=== PATIENT | female | born 1995 | race Caucasian/White ===

== ENCOUNTER 2019-12-15 08:21 | Emergency (ER) | payer OTHER, SELFPAY ==
--- NOTE | ~2019-12-15 | XR_ITS ---
EXAMINATION: XR lumbar spine 2-3V DATE: 12/15/2019 09:05 INDICATION: Generalized low back pain post fall down stairs. TECHNIQUE: Anteroposterior and lateral views of the lumbar spine, and cone-down lateral view of the l umbosacral junction were obtained. COMPARISON: None. FINDINGS: 12 degree lumbar extra scoliosis. Sagittal alignment is normal. Vertebral body heights are normal. Mi ld left-sided disc height loss at L2-L3 and L3-L4. Joint spaces appear normal. Sacral arches are inta ct. No evident fracture. IUD in expected position in the central pelvis. Subcutaneous stranding at th e buttocks on the lateral projection which could represent a contusion. Visualized posterior sulci of the lungs are clear with no pleural effusion. IMPRESSION: 1. Mild lumbar dextroscoliosis. No acute osseous abnormality. 2. IUD. Reviewed, dictated and finalized at location B.
[2019-12-15 08:27] VITALS: BP 130/83; PULSE 89; RESP 20; TEMP 36.9; O2SAT 100
--- NOTE | 2019-12-15 08:53 | ED.GENADULT ---
HPI - General Adult General Chief complaint: Back Pain/Injury Stated complaint: lower back pain/bruised - arms bruised due to fall Time Seen by Provider: 12/15/19 08:53 Source: patient Limitations: no limitations History of Present Illness HPI narrative: 24-year-old female patient [facility] complaints of low back pain. Patient states that she was going down some wooden stairs and slipped and fell landing on her buttocks/back last night. Patient denies any numbness to the lower legs but states a little bit of tingling at times in her thighs. Patient denies any loss of bowel or bladder. Patient states she has been taking ibuprofen for the pain. Patient states she does have pain when bending over and states that she could not even brain picker her daughter this morning. Patient denies hitting her head or loss of consciousness at the time of the fall. Patient denies any or breast-feeding at this time. Related Data Home Medications Medication Instructions Recorded Confirmed levonorgestrel [Mirena] 1 device INTRAUTERINE ONCE 12/15/19 12/15/19 Allergies Allergy/AdvReac Type Severity Reaction Status Date / Time clindamycin Allergy Intermediate Hives Verified 12/15/19 08:39 Review of Systems Review of Systems: Narrative: CONSTITUTIONAL: Denies fever, chills, or sweats. EYES: Denies visual changes, redness, or discharge. ENT: Denies rhinorrhea, congestion, sore throat, or otalgia. CARDIOVASCULAR: Denies chest pain, palpitations, or edema. RESPIRATORY: Denies cough or dyspnea. GASTROINTESTINAL: Denies abdominal pain, nausea, vomiting, or diarrhea. GENITOURINARY: Denies dysuria or hematuria. SKIN: Denies rash or itching. MUSCULOSKELETAL: Positive low back pain, denies joint pain, or myalgia. NEUROLOGIC: Denies headache, numbness, or weakness. PSYCHIATRIC: Denies anxiety or depression. [facility], LAT[facility] Past Medical History Medical History (Updated 12/15/19 @ 09:22 by RAMESH Urbina) Asthma Bronchitis Preeclampsia Tonsillitis Family History Family History Other Asthma Diabetes mellitus Family history of attention deficit hyperactivity disorder (ADHD) Social History Social History Smoking status: Never smoker Alcohol intake: never Comments At the time of my signature I agree with nursing past medical history, surgical, social, and family history. There is no relevant family history pertinent to the presenting complaint. Exam Narrative: Exam Narrative: GENERAL: Well-appearing, well-nourished, and in no acute distress. HEAD: Normocephalic, atraumatic. EYES: PERRLA and EOMI. ENT: Nares clear, no rhinorrhea or epistaxis. Mucous membranes moist. NECK: Supple. No lymphadenopathy CHEST: Clear to auscultation. No respiratory distress. HEART: Regular rate and rhythm. No murmur heard. Normal peripheral pulses. ABDOMEN: Soft, nontender, nondistended, normal active bowel sounds. EXTREMITIES: Normal range of motion. No edema. BACK: Patient is able to ambulated without assistance. Pt is seated on the chair in no obvouis distress. Patient has purple bruising noted to the lower back right above the buttocks/coccyx area. muscle tenderness to Palpation of the lower lumbar and coccyx area. No obvious spasm or mass. No step-offs or deformity noted to the cervical, thoracic to firm Palpation at the midline. Patient does have some lumbar spinal tenderness on palpation around the L4 and L 5. no CVA tenderness to percussion. No saddle anesthesia. ROM: able to stand erect. Decreased flexion, extension, Lateral bending and rotation with limitation and complaint of pain. SKIN: Warm, dry, no rash. NEURO: No focal deficits. Alert and oriented x3. Course Reevaluation(s) Reevaluation #1: Reevaluated patient after her x-ray resulted. Discussed with her that there is no acute fracture noted to the x-ray. Yvonne
== END 2019-12-15 09:29 | disposition home or self-care (01) ==
PROVIDERS: Emergency Provider Nurse Practitioner Family; PCP Nurse Practitioner Adult Health
DX: S30.0XXA Contusion of lower back and pelvis, initial encounter (principal); W10.9XXA Fall (on) (from) unspecified stairs and steps, initial encounter; J45.909 Unspecified asthma, uncomplicated; E28.2 Polycystic ovarian syndrome
CPT/HCPCS: 72100; 99213; G0463

== ENCOUNTER 2020-09-02 13:26 | Emergency (ER) | payer OTHER, SELFPAY ==
[2020-09-02 13:37] LABS: Glucose Point of Care 121 mg/dl (65-105)
[2020-09-02 13:38] VITALS: BP 143/91; PULSE 116; RESP 16; TEMP 37.1; O2SAT 99
--- NOTE | 2020-09-02 13:40 | ECG_ITS ---
Measurements Intervals [place] Rate: 95 P: 54 ME: 147 QRS: 14 QRSD: 85 T: 26 QT: 344 QTc: 433 Interpretive Statements SINUS RHYTHM POSSIBLE LEFT ATRIAL ENLARGEMENT BORDERLINE ECG Electronically Signed On 09-02-2020 16:20:21 CDT by Cristian Parks D.O.
[2020-09-02 14:03] VITALS: BP 146/82; PULSE 99
[2020-09-02 14:04] VITALS: BP 141/94; BP 149/111; PULSE 109; PULSE 119
--- NOTE | 2020-09-02 14:11 | ED.GENADULT ---
HPI - General Adult General Chief complaint: Dizziness Stated complaint: Low blood sugar Time Seen by Provider: 09/02/20 13:45 Source: patient and RN notes reviewed Mode of arrival: ambulatory Limitations: no limitations History of Present Illness HPI narrative: 25-year-old female presents with complaints of lightheadedness, feeling flushed, and dizziness that has been going on for the past 2 days. Bailee reports consistent symptoms over the past 24 hours, told to seek care at [facility]. No treatment. Exacerbating factors consist of changing position too fast turning head from side to side too fast. Some relieving factors is sitting still. Denies ear pain, ear itching, ear trauma, trauma to head, syncopal episodes, altered vision, altered speech, confusion, or seizure activity. Denies headache, numbness or tingling in extremities. Denies chest pain or dyspnea. Denies URI symptoms, fever, or chills. Tolerating po intake well. LMP 08/17/2020. Remains active. The patient reports she was diagnosed with COVID-19 in October,. The patient reports she is not waiting for the results of a COVID-19 lab test. The patient reports she do not have weakness or fatigue. The patient reports she do not have a new or worsening cough. The patient reports she do not have any rhinorrhea, congestion, sore throat, loss of taste or smell, nausea, vomiting, abdominal pain, and diarrhea. Denies recent traveling. Denies concerns for COVID-19 or exposures. At this time, patient is not suspected of having COVID-19. Some parts of this dictation were generated by voice recognition software and may contain typographical and/or grammatical inaccuracies. Related Data Home Medications Medication Instructions Recorded Confirmed levonorgestrel [Mirena] 1 device INTRAUTERINE ONCE 12/15/19 12/15/19 liraglutide [Victoza 3-Napoleon] mg SUBCUT 09/02/20 Allergies Allergy/AdvReac Type Severity Reaction Status Date / Time clindamycin Allergy Intermediate Hives Verified 12/15/19 08:39 Review of Systems Review of Systems: Narrative: CONSTITUTIONAL: Denies fever, chills, sweats. EYES: Denies visual changes, redness, discharge. ENT: Denies rhinorrhea, congestion, sore throat, otalgia. CARDIOVASCULAR: Denies chest pain, palpitations, edema. RESPIRATORY: Denies dyspnea, wheezing, cough. GASTROINTESTINAL: Denies abdominal pain, nausea, vomiting, diarrhea. GENITOURINARY: Denies dysuria, hematuria, abnormal discharge. SKIN: Denies lesions, itching, drainage. MUSCULOSKELETAL: Denies acute back pain, joint pain, or myalgia. NEUROLOGIC: Denies numbness or focal weakness. Complains of lightheadedness, feeling flushed, dizziness and elevated blood pressure. PSYCHIATRIC: Denies anxiety or depression. All systems reviewed & are unremarkable except as noted in HPI and below. [facility] Past Medical History Medical History (Updated 09/03/20 @ 00:00 by Hannah Tay) Asthma Bronchitis Chronic otitis media Hypertension Multiple thyroid nodules Preeclampsia Rhinitis Tonsillitis Surgical History Surgical History (Updated 09/02/20 @ 14:15 by RAMESH Hannon) History of tonsillectomy History of tympanostomy Family History Family History Other Asthma Diabetes mellitus Family history of attention deficit hyperactivity disorder (ADHD) Social History Social History (Updated 09/02/20 @ 14:14 by RAMESH Hannon) Smoking status: Never smoker Tobacco type: cigarettes Second hand tobacco smoke exposure: Yes Alcohol intake: never Substance use: never Living arrangements: with family Occupation/Education: occupation Gender identity (if verbalized by the patient): Female Sexual Orientation (if Verbalized by the Patient): Straight or Heterosexual Comments At time of signature, agree with nurse past medical, surgical, social, and family history. There is relevant patient's
[2020-09-02] MEDS: MECLIZINE HCL 25 MG TABLET 50 MG PO (14:29)
== END 2020-09-02 14:49 | disposition home or self-care (01) ==
PROVIDERS: Emergency Provider Nurse Practitioner Family
DX: I10 Essential (primary) hypertension (principal); H81.10 Benign paroxysmal vertigo, unspecified ear; J45.909 Unspecified asthma, uncomplicated
CPT/HCPCS: 81003; 81025; 82948; 93005; 99213; A9270; G0463

== ENCOUNTER 2021-02-15 17:53 | Emergency (ER) | payer OTHER, SELFPAY ==
--- NOTE | ~2021-02-15 | XR_ITS ---
XR foot LT min 3V DATE: 02/15/2021 18:08 INDICATION: Long fell on top of foot. Dorsal pain and swelling TECHNIQUE: 4 views COMPARISON: None FINDINGS: Mild osteoarthritis at first metatarsophalangeal joint. No fracture or dislocation, periosteal reaction or bone destruction. IMPRESSION: Mild osteoarthritis at first metatarsophalangeal joint No fracture or dislocation Reviewed, dictated and finalized at location A.
[2021-02-15 18:00] VITALS: BP 149/98; PULSE 87; RESP 16; TEMP 37.1; O2SAT 98
--- NOTE | 2021-02-15 18:14 | ED.LOWEXIN ---
HPI - Extremity Injury (Lower) General Chief Complaint: Extremity Injury, Lower Stated Complaint: Left Foot Injury Time Seen by Provider: 02/15/21 18:14 Source: patient and family History of Present Illness HPI Narrative: patient presents with left foot injury. patient states that a log fell onto her foot. reports pain with ambulation . Injury: Left: foot (left foot pain) Related Data Home Medications Medication Instructions Recorded Confirmed levonorgestrel [Mirena] 1 device INTRAUTERINE ONCE 12/15/19 12/15/19 liraglutide [Victoza 3-Napoleon] mg SUBCUT 09/02/20 Allergies Allergy/AdvReac Type Severity Reaction Status Date / Time clindamycin Allergy Intermediate Hives Verified 12/15/19 08:39 Review of Systems Review of Systems: CONSTITUTIONAL: Denies fever, chills, or sweats. EYES: Denies visual changes, redness, or discharge. ENT: Denies rhinorrhea, congestion, sore throat, or otalgia. CARDIOVASCULAR: Denies chest pain, palpitations, or edema. RESPIRATORY: Denies cough or dyspnea. GASTROINTESTINAL: Denies abdominal pain, nausea, vomiting, or diarrhea. GENITOURINARY: Denies dysuria or hematuria. SKIN: Denies rash or itching. MUSCULOSKELETAL: Denies back pain, joint pain, or myalgia. NEUROLOGIC: Denies headache, numbness, or weakness. PSYCHIATRIC: Denies anxiety or depression. [facility] Past Medical History Medical History (Updated 02/15/21 @ 18:16 by RAMESH Steven) Asthma Bronchitis Chronic otitis media Hypertension Multiple thyroid nodules Preeclampsia Rhinitis Tonsillitis Surgical History Surgical History (Updated 09/02/20 @ 14:15 by RAMESH Hannon) History of tonsillectomy History of tympanostomy Family History Family History Other Asthma Diabetes mellitus Family history of attention deficit hyperactivity disorder (ADHD) Social History Social History (Updated 09/02/20 @ 14:14 by RAMESH Hannon) Smoking status: Never smoker Tobacco type: cigarettes Second hand tobacco smoke exposure: Yes Alcohol intake: never Substance use: never Gender identity (if verbalized by the patient): Female Sexual Orientation (if Verbalized by the Patient): Straight or Heterosexual Comments At time of signature, agree with nursing past medical, surgical, social and family history. There is no relevant family history pertinent to the presenting complaint Exam Narrative: GENERAL: Well-appearing, well-nourished, and in no acute distress. HEAD: Normocephalic, atraumatic. EYES: PERRLA and EOMI. ENT: Nares clear, no rhinorrhea or epistaxis. Mucous membranes moist. NECK: Supple. CHEST: Clear to auscultation. No respiratory distress. HEART: Regular rate and rhythm. No murmur heard. Normal peripheral pulses. ABDOMEN: Soft, nontender, nondistended, normal active bowel sounds. EXTREMITIES: Normal range of motion. No edema. ANKLE EXAM SKIN INTACT. NORMAL DP PULSE, NORMAL CAP REFILL. NORMAL SENSATION. SKIN: Warm, dry, no rash. NEURO: No focal deficits. Alert and oriented x3. Glenn Coma Scale Eye Opening: Spontaneous 4 [place] Coma Scale Motor: Obeys Commands 6 [place] Coma Scale Verbal: Oriented 5 Glenn Coma Scale Total 15 Course Vital Signs Vital signs: Vital Signs Temperature 37.1 C 02/15/21 18:00 Pulse Rate 87 02/15/21 18:00 Respiratory Rate 16 02/15/21 18:00 Blood Pressure 149/98 H 02/15/21 18:00 Pulse Oximetry 98 02/15/21 18:00 Temperature 37.1 C 02/15/21 18:00 Pulse Rate 87 02/15/21 18:00 Respiratory Rate 16 02/15/21 18:00 Blood Pressure 149/98 H 02/15/21 18:00 Pulse Oximetry 98 02/15/21 18:00 Addressed elevated BP today. Today's blood pressure higher than recommended range. Discussed importance of follow -up with PCP and possible nursing home effects/cardiovascular events related to HTN. Currently patient denies headache, dizziness, vision changes, CP or shortness of b
== END 2021-02-15 18:33 | disposition home or self-care (01) ==
PROVIDERS: Emergency Provider Nurse Practitioner Family; PCP Nurse Practitioner Adult Health
DX: S93.402A Sprain of unspecified ligament of left ankle, initial encounter (principal); S96.912A Strain of unspecified muscle and tendon at ankle and foot level, left foot, initial encounter; W20.8XXA Other cause of strike by thrown, projected or falling object, initial encounter; J45.909 Unspecified asthma, uncomplicated; I10 Essential (primary) hypertension
CPT/HCPCS: 73630; 99213; G0463

== ENCOUNTER 2021-08-13 21:15 | Emergency (ER) | payer OTHER, SELFPAY ==
[2021-08-13 21:40] VITALS: BP 149/96; PULSE 108; RESP 16; TEMP 36.9; O2SAT 100
--- NOTE | 2021-08-13 22:50 | PC.NURSE ---
pt no answer for room assignment x1
== END 2021-08-13 22:50 | disposition left against medical advice (07) ==
LOC: ANHED 08-14 00:50
PROVIDERS: PCP Nurse Practitioner Adult Health
DX: O26.891 Other specified pregnancy related conditions, first trimester (principal); R10.9 Unspecified abdominal pain
CPT/HCPCS: 99199

== ENCOUNTER 2021-08-30 18:29 | Emergency (ER) | payer OTHER, SELFPAY ==
[2021-08-30 18:34] VITALS: BP 145/85; PULSE 119; RESP 20; TEMP 37.4; O2SAT 100
--- NOTE | 2021-08-30 18:55 | ED.GENADULT ---
HPI - General Adult General Chief complaint: Abdominal Pain Stated complaint: Blood Pressure Problem Time Seen by Provider: 08/30/21 18:50 Source: patient, RN notes reviewed and old records reviewed Mode of arrival: ambulatory Limitations: no limitations History of Present Illness HPI narrative: 26-year-old female presents to express care with complaints of intermittent cramping for 2 days and states today she has felt hot/flushed wonders if her blood pressure is up. Patient reports that she is 9 weeks and has just not been feeling well for the past 2 days.She has history of hypertension with past and blood pressure is elevated and is presently on Procardia XL, no pedal edema noted. Patient denies any fevers chills or sweats,denies any back pain, chest pain or any acute shortness of breath.Patient states that she did not try to get ahold of her OB physician. Onset (ago): day(s) (2) Related Data Home Medications Medication Instructions Recorded Confirmed nifedipine [Procardia XL] 30 mg PO DAILY 08/30/21 08/30/21 Allergies Allergy/AdvReac Type Severity Reaction Status Date / Time clindamycin Allergy Intermediate Hives Verified 08/30/21 18:53 Review of Systems Review of Systems: CONSTITUTIONAL: Denies fever, chills, or sweats reports that she has felt flushed. EYES: Denies visual changes, redness, or discharge. ENT: Denies rhinorrhea, congestion, sore throat, or otalgia. CARDIOVASCULAR: Denies chest pain, palpitations, or edema. RESPIRATORY: Denies cough or dyspnea. GASTROINTESTINAL: Reports some intermittent abdominal cramping,no nausea, vomiting, or diarrhea.no vaginal discharge or any bleeding. GENITOURINARY: Denies dysuria or hematuria. SKIN: Denies rash or itching. MUSCULOSKELETAL: Denies back pain, joint pain, or myalgia. NEUROLOGIC: Denies headache, numbness, or weakness. PSYCHIATRIC: Denies anxiety or depression. All systems reviewed & are unremarkable except as noted in HPI and below PMF[facility] Past Medical History Medical History Asthma Bronchitis Chronic otitis media Hypertension Multiple thyroid nodules Preeclampsia Rhinitis Tonsillitis Surgical History Surgical History History of tonsillectomy History of tympanostomy Family History Family History Other Asthma Diabetes mellitus Family history of attention deficit hyperactivity disorder (ADHD) Social History Social History Smoking status: Never smoker Tobacco type: cigarettes Second hand tobacco smoke exposure: Yes Alcohol intake: never Substance use: never Gender identity (if verbalized by the patient): Female Sexual Orientation (if Verbalized by the Patient): Straight or Heterosexual Comments At time of signature, agree with nursing past medical, surgical, social and family history. There is no relevant family history pertinent to the presenting complaint Exam Narrative: GENERAL: Well-appearing, well-nourished, and in no acute distress. HEAD: Normocephalic, atraumatic. EYES: PERRLA and EOMI.no nystagmus ENT: Nares clear, no rhinorrhea or epistaxis. Mucous membranes moist.TM's normal with good light reflex, throat pink with no lesions or exudates, no tonsils present. NECK: Supple.no lymphadenopathy CHEST: Clear to auscultation. No respiratory distress.no cough SAO2 100% on room air HEART: Regular rate and rhythm. No murmur heard. Normal peripheral pulses.no pedal edema present ABDOMEN: Soft, nontender on palpation, nondistended, normal active bowel sounds.No CVA tenderness on examination, intermittent cramping type of sensation right abdomen, no vaginal discharge or bleeding EXTREMITIES: Normal range of motion. No edema. SKIN: Warm, dry, no rash.face slightly flushed denies any headache NEURO: No foc
[2021-08-30 19:02] VITALS: BP 140/80
== END 2021-08-30 19:24 | disposition home or self-care (01) ==
PROVIDERS: Emergency Provider Registered Nurse
DX: O23.41 Unspecified infection of urinary tract in pregnancy, first trimester (principal); N39.0 Urinary tract infection, site not specified; O16.1 Unspecified maternal hypertension, first trimester; Z3A.09 9 weeks gestation of pregnancy; O99.511 Diseases of the respiratory system complicating pregnancy, first trimester; J45.909 Unspecified asthma, uncomplicated
CPT/HCPCS: 81003; 87086; 87088; 99213; G0463

== ENCOUNTER 2021-10-16 18:12 | Emergency (ER) | payer OTHER, SELFPAY ==
--- NOTE | ~2021-10-16 | US_ITS ---
US OB <= 14 weeks fetus DATE: 10/16/2021 21:34 INDICATION: Lower abdominal pain TECHNIQUE: Real-time imaging and Doppler analysis COMPARISON: None FINDINGS: Live cornejo intrauterine gestation, fetus activity variable position, with heart r ate of 149 bpm. Anterior placenta. Subjectively normal amount of amniotic fluid. Biparietal diameter 3.36 cm; 16 weeks 3 days Head circumference 12.42 cm; 16 weeks 2 days Abdominal circumference 9.30 cm; 15 weeks 3 days Femur length 1.95 cm; 15 weeks 6 days Estimated weight is 151 +/- 20 3 g. IMPRESSION: No abnormality identified Reviewed, dictated and finalized at Location A. Reviewed, dictated and finalized at location A. IMPRESSION: No abnormality identified
[2021-10-16 18:15] VITALS: BP 150/95; PULSE 116; RESP 18; TEMP 36.7; O2SAT 99
--- NOTE | 2021-10-16 18:49 | ED.NAVMDI ---
HPI - Nausea/Vomiting/Diarrhea General Chief complaint: Nausea/Vomiting/Diarrhea Stated complaint: vomiting Time Seen by Provider: 10/16/21 18:42 History of Present Illness HPI Narrative: 26-year-old G2, P1 female who is currently 16 weeks here for evaluation of nausea, vomiting, and diarrhea today. Patient notes about 4 episodes of nonbloody emesis today, and has had about 8 episodes of nonbloody diarrhea. States that she has been unable to keep any food or fluids down. Also reports subjective fevers, body aches and some lower abdominal cramping. No recent antibiotic use, denies sick contacts. Denies vaginal bleeding, syncope, leg swelling, headaches, visual changes. No rhinorrhea, cough, SOB, sudden gush of fluids. Is a patient of Dr. Correia; has not yet had US with Deo. Related Data Home Medications Medication Instructions Recorded Confirmed nifedipine 30 mg tablet,extended 30 mg PO DAILY 08/30/21 08/30/21 release 24 hr (Procardia XL) Allergies Allergy/AdvReac Type Severity Reaction Status Date / Time clindamycin Allergy Intermediate Hives Verified 10/16/21 18:34 Review of Systems Review of Systems: Gen: Reports subjective fevers. Eyes: Denies eye pain or visual change ENT: Denies congestion Respiratory: Denies shortness of breath or cough CV: Denies chest pain or palpitations GI: Reports nausea, vomiting, diarrhea, lower abdominal pain. denies burning, urgency, frequency or hematuria Musculoskeletal: Denies back pain or muscle pain Neuro: Denies numbness, tingling, weakness or focal weakness Skin: Denies rash Except as documented, all other systems reviewed and negative [facility] Past Medical History Medical History Asthma Bronchitis Chronic otitis media Hypertension Multiple thyroid nodules Preeclampsia Rhinitis Tonsillitis Surgical History Surgical History History of tonsillectomy History of tympanostomy Family History Family History Other Asthma Diabetes mellitus Family history of attention deficit hyperactivity disorder (ADHD) Social History Social History Smoking status: Never smoker Tobacco type: cigarettes Second hand tobacco smoke exposure: Yes Alcohol intake: never Substance use: never Gender identity (if verbalized by the patient): Female Sexual Orientation (if Verbalized by the Patient): Straight or Heterosexual Exam Narrative: APPEARANCE: Well appearing, no pain in distress, well-nourished. Head: Normocephalic and atraumatic. EYES: PERRLA/EOMI, conjunctivae clear NOSE: No nasal drainage EARS: External ear normal in appearance THROAT: Oropharynx is clear. Mucous membranes are moist. NECK: Supple. No adenopathy, no masses. RESPIRATORY: Airway patent, respirations nonlabored. Clear to auscultation bilaterally, no rales, rhonchi, wheezing. CARDIOVASCULAR: Regular rate and rhythm without murmurs, rubs, or gallops. ABDOMINAL: heart tones detected at 165 bpm. Normoactive bowel sounds. Soft, nontender, nondistended. No rebound tenderness or guarding. MUSCULOSKELETAL: Extremities are warm and well-perfused. Moves all extremities well. No edema. NEURO: Normal speech. No focal neurologic deficits. SKIN: Skin is warm and dry. No rashes. PSYCHIATRIC: Normal affect/mood. Course Vital Signs Vital signs: Vital Signs Temperature 98.0 F 10/16/21 18:15 Pulse Rate 116 H 10/16/21 18:15 Respiratory Rate 18 10/16/21 18:15 Blood Pressure 150/95 H 10/16/21 18:15 Pulse Oximetry 99 10/16/21 18:15 Oxygen Delivery Room Air 10/16/21 18:15 Temperature 98.0 F 10/16/21 18:15 Pulse Rate 79 10/16/21 22:27 Respiratory Rate 16 10/16/21 22:27 Blood Pressure 127/73 10/16/21 22:27 Pulse Oximetry 97
[2021-10-16 18:58] LABS: Basophils Percent Auto 0.3 % (0.2-1.2); Eosinophils Percent Auto 0.1 % (0-4.4); Hematocrit 40.3 % (37.0-47.0); Hemoglobin 13.6 g/dL (12.0-15.0); Immature Granulocyte Absolute 0.08 K/mm3 (0.00-0.031); Immature Granulocyte Percent A 0.7 % (0-0.5); Lymphocytes Absolute Auto 0.77 K/mm3 (0.9-3.2); Lymphocytes Percent Auto 6.3 % (18.3-44.2); Mean Corpuscular HGB Conc 33.7 g/dl (32-36); Mean Corpuscular Hemoglobin 29.4 pg (26-34); Mean Platelet Volume 10.5 fl (7.4-10.4); Monocytes Absolute Auto 0.7 K/mm3 (0.1-0.6); Monocytes Percent Auto 5.4 % (2.6-8.5); Neutrophils Absolute Auto 10.6 K/mm3 (1.3-6.7); Neutrophils Percent Auto 87.2 % (45.5-73.1); Platelet Count Result 223 k/mm3 (150-375); Red Blood Count 4.63 M/mm3 (4.2-5.4); Red Cell Distribution Width 13.2 % (11.5-14.5); White Blood Count 12.2 K/mm3 (4.5-10.0)
[2021-10-16] MEDS: LACTATED RINGERS 1,000 ML 999 ML IV CONT ×2 (19:05→20:52)
[2021-10-16] MEDS: ONDANSETRON INJ 4 MG/2 ML VIAL IV PUSH (19:05)
[2021-10-16 19:09] LABS: Alanine Aminotransferase 53 U/L (6-35); Albumin Level 4.6 g/dL (3.5-5.1); Alkaline Phosphatase 73 U/L (38-126); Anion Gap 10 mmol/L (8-16); Aspartate Amino Transferase 39 U/L (14-36); Bilirubin,Total 0.6 mg/dL (0.2-1.3); Blood Urea Nitrogen 8 mg/dL (7-17); Calcium 8.7 mg/dL (8.4-10.2); Carbon Dioxide 22 mmol/L (22-30); Chloride 103 mmol/L (98-107); Estimated CRCL calculation 173 ml/min; Estimated Glomerular Filt Rate > 60; Glucose 97 mg/dL (65-110); Potassium 3.9 mmol/L (3.4-5.0); Sodium 135 mmol/L (137-145)
[2021-10-16 19:14] LABS: Appearance Urine Clear (Clear); Bilirubin Urine 1+ (Negative); Blood Urine Negative (Negative); Color Urine Yellow (Yellow); Glucose Urine UA Negative (Negative); Ketones Urine 2+ mg/dL (Negative); Leukocyte Esterase Ur 1+ LEU/UL (Negative); Nitrate Urine Negative (Negative); Protein Urine Trace mg/dL (Negative); Specific Grav Ur >= 1.030 (1.001-1.035); Urobilinogen Urine 0.2 mg/dL (<2.0); pH Urine 5.5 (5.0-9.0)
[2021-10-16 19:35] LABS: Bacteria Urine Trace /hpf; Mucus Urine Moderate /lpf; Squamous Epithelial Cell Urine Many /hpf (Few); WBC Urine 31-50 /hpf
[2021-10-16 19:38] LABS: Add Urine Microscopic? YES
[2021-10-16] MEDS: ACETAMINOPHEN 325 MG TABLET 650 MG PO (19:49)
[2021-10-16 20:17] VITALS: BP 120/69; PULSE 87; RESP 16; O2SAT 97
[2021-10-16 21:14] LABS: SARS-CoV-2 RNA PCR Negative
[2021-10-16 22:27] VITALS: BP 127/73; PULSE 79; RESP 16; O2SAT 97
== END 2021-10-16 22:41 | disposition home or self-care (01) ==
PROVIDERS: Physician Assistant; Emergency Provider Emergency Medicine
DX: O10.912 Unspecified pre-existing hypertension complicating pregnancy, second trimester (principal); K52.9 Noninfective gastroenteritis and colitis, unspecified; O23.42 Unspecified infection of urinary tract in pregnancy, second trimester; N39.0 Urinary tract infection, site not specified; O99.612 Diseases of the digestive system complicating pregnancy, second trimester; K92.9 Disease of digestive system, unspecified; Z3A.16 16 weeks gestation of pregnancy; Z20.822 Contact with and (suspected) exposure to COVID-19
CPT/HCPCS: 36415; 76801; 80053; 81001; 85025; 87086; 96361; 96374; 99284; A9270; C9803; J2405; J7120; U0003; U0005

== ENCOUNTER 2021-11-04 16:31 | Observation (INO) | payer OTHER, SELFPAY ==
[2021-11-04 17:01] VITALS: BP 131/75; PULSE 95
[2021-11-04 17:16] VITALS: BP 126/66; PULSE 87
[2021-11-04 17:19] LABS: Appearance Urine Cloudy (Clear); Bilirubin Urine Negative (Negative); Blood Urine Negative (Negative); Color Urine Yellow (Yellow); Glucose Urine UA Negative (Negative); Ketones Urine Negative (Negative); Leukocyte Esterase Ur 2+ LEU/UL (Negative); Nitrate Urine Negative (Negative); Protein Urine Negative (Negative); Specific Grav Ur >= 1.030 (1.001-1.035); Urobilinogen Urine 0.2 mg/dL (<2.0); pH Urine 5.5 (5.0-9.0)
[2021-11-04 17:23] LABS: Bacteria Urine Trace /hpf; Mucus Urine Rare /lpf; Squamous Epithelial Cell Urine Many /hpf (Few); WBC Urine 21-30 /hpf
[2021-11-04 17:24] LABS: Add Urine Microscopic? YES
[2021-11-04 17:31] VITALS: BP 126/73; PULSE 82
[2021-11-04 17:37] VITALS: BP 131/75; PULSE 94; TEMP 36.9
--- NOTE | 2021-11-04 18:00 | OBADM ---
This patient, Bailee Hillman, admitted to the OB room [facility] for observation. Patient/family oriented to hospital policies and general routines including ID bracelet, bed and alarms, visiting hours, pain management, procedures, bathroom and other care routines, personal items, smoking policy, room service/diet, and visiting hours. Patient/Family are encouraged to report perceived risks to care and to ask questions if they do not understand what they are told or what they should do.
--- NOTE | 2021-11-06 01:36 | PM.OBTRLD ---
OB - Triage/Final Diagnosis Visit Information Date of evaluation: 11/04/21 Reason for evaluation: threatened labor Comments/Additional reasons for admission: I have assessed the risk for this patient, Bailee Hillman, and determined that she would benefit from observation care. Evaluation Laboratory results: Laboratory Tests 11/04/21 17:10 Urine Color Yellow Urine Appearance Cloudy H Urine pH 5.5 Ur Specific Jackson >= 1.030 Urine Protein Negative Urine Glucose (UA) Negative Urine Ketones Negative Ur Blood (Man) Negative Urine Nitrate Negative Urine Bilirubin Negative Urine Urobilinogen 0.2 Leukocyte Esterase Rfl 2+ H Urine RBC 3-5 H Urine WBC 21-30 H Ur Squamous Epith Cells Many H Urine Bacteria Trace Urine Mucus Rare
== END 2021-11-04 17:55 | disposition home or self-care (01) ==
PROVIDERS: Admitting Provider Student in an Organized Health Care Education/Training Program; Visit Provider Student in an Organized Health Care Education/Training Program
DX: O47.02 False labor before 37 completed weeks of gestation, second trimester (principal); Z3A.18 18 weeks gestation of pregnancy
CPT/HCPCS: 81001; 87086; G0378; G0379

== ENCOUNTER 2021-11-20 16:35 | Observation (INO) | payer OTHER, SELFPAY ==
[2021-11-20] VITALS (9 sets, daily range): BP systolic 115–125; BP diastolic 64–77; PULSE 88–94; RESP 18; TEMP 37.3–37.8; BMI 39.4
[2021-11-20 17:16] LABS: Appearance Urine Cloudy (Clear); Bilirubin Urine Negative (Negative); Blood Urine 1+ (Negative); Color Urine Yellow (Yellow); Glucose Urine UA Negative (Negative); Ketones Urine Trace mg/dL (Negative); Leukocyte Esterase Ur 3+ LEU/UL (Negative); Nitrate Urine Negative (Negative); Protein Urine Trace mg/dL (Negative); Specific Grav Ur 1.025 (1.001-1.035); pH Urine 6.5 (5.0-9.0)
[2021-11-20 17:24] LABS: Add Urine Microscopic? YES; Amorphous Sediment Urine Few; Bacteria Urine Trace /hpf; Mucus Urine Few /lpf; Squamous Epithelial Cell Urine Many /hpf (Few); WBC Urine 21-30 /hpf
[2021-11-20] MEDS: ACETAMINOPHEN 500 MG TABLET 1000 MG PO (18:01)
--- NOTE | 2021-12-22 11:48 | P.PNOB_ITS ---
OB - Triage/Final Diagnosis Visit Information Comments/Additional reasons for admission: I have assessed the risk for this patient, Bailee Hillman, and determined that she would benefit from observation care. Evaluation Laboratory results: Laboratory Tests 11/20/21 17:06 Urine Color Yellow Urine Appearance Cloudy H Urine pH 6.5 Ur Specific [place] 1.025 Urine Protein Trace Urine Glucose (UA) Negative Urine Ketones Trace Ur Blood (Man) 1+ H Urine Nitrate Negative Urine Bilirubin Negative Urine Urobilinogen 1.0 Leukocyte Esterase Rfl 3+ H Urine RBC 6-10 H Urine WBC 21-30 H Ur Squamous Epith Cells Many H Amorphous Sediment Few H Urine Bacteria Trace Urine Mucus Few H Final Diagnosis (1) Abdominal pain affecting : Code(s): O26.899 - Other specified related conditions, unspecified trimester; R10.9 - Unspecified abdominal pain Status: Acute
== END 2021-11-20 18:28 | disposition home or self-care (01) ==
PROVIDERS: Admitting Provider Obstetrics & Gynecology; Visit Provider Obstetrics & Gynecology
DX: O26.892 Other specified pregnancy related conditions, second trimester (principal); R10.9 Unspecified abdominal pain; Z3A.20 20 weeks gestation of pregnancy
CPT/HCPCS: 81001; 87086; A9270; G0378; G0379

== ENCOUNTER 2021-11-21 17:10 | Observation (INO) | payer OTHER, SELFPAY ==
[2021-11-21] VITALS (8 sets, daily range): BP systolic 123–132; BP diastolic 69–81; PULSE 92–101; RESP 16; TEMP 36.6–37; BMI 39.7
--- NOTE | 2021-11-21 17:57 | PC.NURSE ---
Pt had green/brown milky discharge from vagina, vaginal/perineum redness and tenderness. Mild swelling noted. White, round area noted at opening of vagina where discharge is coming from. Pt.'s symptoms and assessment reported to Dr. Correia. Orders received for trichomonas, gonorrhea, chlamydia, and general genital swab. Discharge patient after swabs done and pt to warehouse picker script for steroid cream and do sitz baths as needed.
--- NOTE | 2021-12-22 11:50 | PM.OBTRLD ---
OB - Triage/Final Diagnosis Visit Information Comments/Additional reasons for admission: I have assessed the risk for this patient, Bailee Hillman, and determined that she would benefit from observation care. Evaluation Laboratory results: Laboratory Tests 11/21/21 11/21/21 11/21/21 19:15 19:15 19:15 C.trachomatis RNA (TMA) Not detected Herpes Simplex Culture Not isolated N.gonorrhoeae RNA (TMA) Not detected Trichomonas Direct ID Negative Final Diagnosis (1) Abdominal pain affecting : Code(s): O26.899 - Other specified related conditions, unspecified trimester; R10.9 - Unspecified abdominal pain Status: Acute
== END 2021-11-21 19:37 | disposition home or self-care (01) ==
PROVIDERS: Admitting Provider Obstetrics & Gynecology; Visit Provider Obstetrics & Gynecology
DX: O26.892 Other specified pregnancy related conditions, second trimester (principal); R20.9 Unspecified disturbances of skin sensation; Z3A.20 20 weeks gestation of pregnancy
CPT/HCPCS: 87070; 87255; 87491; 87591; 87808; G0378; G0379

== ENCOUNTER 2021-12-03 18:28 | Observation (INO) | payer OTHER, SELFPAY ==
--- NOTE | 2021-12-03 18:43 | PM.OBTRLD ---
OB - Triage/Final Diagnosis Visit Information Reason for evaluation: threatened labor Comments/Additional reasons for admission: I have assessed the risk for this patient, Bailee Hillman, and determined that she would benefit from observation care.
[2021-12-03 18:45] VITALS: TEMP 36.7
[2021-12-03 18:57] VITALS: BP 123/73; PULSE 92
[2021-12-03 19:00] VITALS: BP 111/72; PULSE 88
[2021-12-03 19:08] LABS: Appearance Urine Clear (Clear); Bilirubin Urine Negative (Negative); Blood Urine 2+ (Negative); Color Urine Yellow (Yellow); Glucose Urine UA Negative (Negative); Ketones Urine Negative (Negative); Leukocyte Esterase Ur 2+ LEU/UL (Negative); Nitrate Urine Negative (Negative); Protein Urine Negative (Negative); Specific Grav Ur >= 1.030 (1.001-1.035); Urobilinogen Urine 0.2 mg/dL (<2.0); pH Urine 5.5 (5.0-9.0)
[2021-12-03 19:15] VITALS: BP 116/79; PULSE 77
[2021-12-03 19:24] LABS: Bacteria Urine Trace /hpf; Mucus Urine Rare /lpf; Squamous Epithelial Cell Urine Moderate /hpf (Few); WBC Urine 21-30 /hpf
[2021-12-03 19:30] LABS: Add Urine Microscopic? YES
== END 2021-12-03 20:05 | disposition home or self-care (01) ==
PROVIDERS: Admitting Provider Obstetrics & Gynecology; Visit Provider Obstetrics & Gynecology
DX: O47.9 False labor, unspecified (principal); Z3A.00 Weeks of gestation of pregnancy not specified
CPT/HCPCS: 81001; 87086; 87088; G0378; G0379

== ENCOUNTER 2022-01-16 10:40 | Outpatient (RCR) | payer OTHER, SELFPAY | END 2022-04-07 08:34 | disposition home or self-care (01) | LOC: ANHDMC 10:40 | PROVIDERS: Visit Provider Obstetrics & Gynecology | DX: O24.319 Unspecified pre-existing diabetes mellitus in pregnancy, unspecified trimester (principal); Z3A.00 Weeks of gestation of pregnancy not specified; Z71.89 Other specified counseling | CPT/HCPCS: G0108 ==

== ENCOUNTER 2022-02-15 16:36 | Observation (INO) | payer OTHER, SELFPAY ==
[2022-02-15 16:45] VITALS: BMI 41.2
--- NOTE | 2022-02-15 17:13 | PC.NURSE ---
Pt. admitted to OB observation due to complaints of decreased movement and lower back cramping. NST completed and was reactive. Patient's cramping was coincident with accelerations. Dr. Yovanny Stevenson updated with patient status and verbal discharge orders given. Patient agrees with plan of care to be discharged.
[2022-02-15 17:15] VITALS: BP 131/67; PULSE 90
--- NOTE | 2022-02-15 17:18 | LDADM ---
This patient, Bailee Hillman, was admitted to OB Post 117 on 02/15/22 at 16:36. Plans for labor, pain management and were discussed with patient. Patient/family oriented to hospital policies and general routines including ID bracelet, bed and alarms, visiting hours, pain management, procedures, bathroom and other care routines, personal items, smoking policy, room service/diet and guest tray routines, infant security routines, and visiting hours. Patient/Family are encouraged to report perceived risks to care and to ask questions if they do not understand what they are told or what they should do. See OBIX for further documentation.
== END 2022-02-15 17:36 | disposition home or self-care (01) ==
PROVIDERS: Admitting Provider Obstetrics & Gynecology; Visit Provider Obstetrics & Gynecology
DX: O47.03 False labor before 37 completed weeks of gestation, third trimester (principal); Z3A.33 33 weeks gestation of pregnancy
CPT/HCPCS: G0378; G0379

== ENCOUNTER 2022-03-19 12:21 | Outpatient (RCR) | payer OTHER, SELFPAY ==
[2022-02-11 18:35] VITALS: BP 127/77; PULSE 81
[2022-02-27 13:25] VITALS: BP 129/81; PULSE 102
[2022-03-12 10:16] VITALS: BP 130/84; PULSE 91
== END 2022-05-12 23:59 | disposition home or self-care (01) ==
LOC: ANHOBOP 12:21
PROVIDERS: Visit Provider Obstetrics & Gynecology
DX: O24.419 Gestational diabetes mellitus in pregnancy, unspecified control (principal); O14.93 Unspecified pre-eclampsia, third trimester; Z3A.32 32 weeks gestation of pregnancy; Z3A.34 34 weeks gestation of pregnancy; Z3A.36 36 weeks gestation of pregnancy
CPT/HCPCS: 59025

== ENCOUNTER 2022-03-19 12:21 | Outpatient (CLI) | payer OTHER, SELFPAY ==
[2022-03-19] VITALS (9 sets, daily range): BP systolic 117–140; BP diastolic 71–106; PULSE 78–108
--- NOTE | 2022-03-19 12:30 | PC.NURSE ---
Pt here for NST pt states she felt gush of fluid prior to arrival. Gestational Diabetes and Elevated blood pressures with /
--- NOTE | 2022-03-19 13:30 | PC.NURSE ---
NST reactive. Pt denies any pain. Lab work ordered and drawn per Dr. Correia. Pt aware.
[2022-03-19 13:44] LABS: Glucose Point of Care 121 mg/dl (65-105)
[2022-03-19 13:52] LABS: Basophils Percent Auto 0.3 % (0.2-1.2); Eosinophils Percent Auto 0.3 % (0-4.4); Hematocrit 36.7 % (37.0-47.0); Hemoglobin 12.2 g/dL (12.0-15.0); Immature Granulocyte Absolute 0.04 K/mm3 (0.00-0.031); Immature Granulocyte Percent A 0.4 % (0-0.5); Lymphocytes Absolute Auto 1.62 K/mm3 (0.9-3.2); Mean Corpuscular HGB Conc 33.2 g/dl (32-36); Mean Corpuscular Hemoglobin 29.4 pg (26-34); Mean Corpuscular Volume 88.4 fl (80-100); Monocytes Absolute Auto 0.5 K/mm3 (0.1-0.6); Monocytes Percent Auto 5.1 % (2.6-8.5); Neutrophils Absolute Auto 7.9 K/mm3 (1.3-6.7); Neutrophils Percent Auto 77.9 % (45.5-73.1); Platelet Count Result 185 k/mm3 (150-375); Red Blood Count 4.15 M/mm3 (4.2-5.4); Red Cell Distribution Width 13.1 % (11.5-14.5); White Blood Count 10.1 K/mm3 (4.5-10.0)
[2022-03-19 14:01] LABS: Alanine Aminotransferase 18 U/L (6-35); Albumin Level 3.5 g/dL (3.5-5.1); Alkaline Phosphatase 147 U/L (38-126); Anion Gap 7 mmol/L (8-16); Aspartate Amino Transferase 18 U/L (14-36); Bilirubin,Total 0.3 mg/dL (0.2-1.3); Blood Urea Nitrogen 7 mg/dL (7-17); Calcium 8.6 mg/dL (8.4-10.2); Carbon Dioxide 23 mmol/L (22-30); Chloride 106 mmol/L (98-107); Estimated Glomerular Filt Rate > 60; Glucose 148 mg/dL (65-110); Potassium 3.6 mmol/L (3.4-5.0); Sodium 136 mmol/L (137-145)
--- NOTE | 2022-03-19 14:49 | PC.NURSE ---
Awaiting call from Dr. Correia. Pre eclampsia discussed with pt.
[2022-03-19 15:02] LABS: Creatinine Urine 140.1 mg/dL; Total Protein Urine Random 15 mg/dL; Ur Ttl Prot Creatinine Ratio 0.11 mg/mg (0-0.20)
--- NOTE | 2022-03-19 16:05 | PC.NURSE ---
Blood pressure at 1515 had cuff partially on arm. Vital signs as noted. Pt denies any complaints at this time. Will discharge home with [facility] handout and pt. to return. if any symptoms or decreased movement.
== END 2022-03-19 15:50 | disposition home or self-care (01) ==
LOC: ANHOBOP 13:19 → ANHOBPP 13:19
PROVIDERS: Visit Provider Obstetrics & Gynecology
DX: O13.9 Gestational [pregnancy-induced] hypertension without significant proteinuria, unspecified trimester (principal); Z3A.00 Weeks of gestation of pregnancy not specified
CPT/HCPCS: 36415; 59025; 80053; 82570; 82948; 84156; 84550; 85025; 99199

== ENCOUNTER 2022-03-22 16:56 | Inpatient (IN) | payer OTHER, SELFPAY ==
[2022-03-22] VITALS (13 sets, daily range): BP systolic 118–144; BP diastolic 71–95; PULSE 77–107; TEMP 36.6; BMI 42.0
--- NOTE | 2022-03-22 17:35 | P.PNAN_ITS ---
Anes - Eval Pre Procedure Procedure: labor epidural Date/Time: 03/22/22 17:35 Pre Op Diagnosis: induction Patient Data Age: 26 Gender: F Height: Weight: Last Vital Signs Pulse 86 03/22/22 17:31 BP 125/78 03/22/22 17:31 Allergies Allergy/AdvReac Type Severity Reaction Status Date / Time clindamycin Allergy Intermediate Hives Verified 03/17/22 14:33 Home Medications Medication Instructions Recorded Confirmed Type PNV 153-FA 400 mcg-om3 35 mg-dha 2 tablet PO DAILY 11/20/21 03/12/22 History 25 mg-epa 5 mg-fish oil chew tablet ( Gummies) glyburide 5 mg tablet 5 mg PO HS 03/12/22 03/12/22 History sertraline 50 mg tablet 50 mg PO DAILY 03/12/22 03/12/22 History Patient hx anesthesia problems: none Family hx anesthesia problems: none Results Review: All pre-operative results and documents have been reviewed as part of the pre- operative evaluation. [facility] Past Medical History Medical History (Updated 03/22/22 @ 17:36 by Maria T Page CRNA) Anxiety and depression Asthma Bronchitis Chronic otitis media GDM (gestational diabetes mellitus), class A1 Hypertension Multiple thyroid nodules Preeclampsia Rhinitis Scoliosis Tonsillitis Surgical History Surgical History History of tonsillectomy History of tympanostomy Family History Family History Grandparent Diabetes mellitus Grandparent Diabetes mellitus Sibling Asthma Family history of attention deficit hyperactivity disorder (ADHD) Sibling Asthma Social History Social History Smoking status: Never smoker Tobacco type: cigarettes Second hand tobacco smoke exposure: Yes Alcohol intake: never Substance use: never Gender identity (if verbalized by the patient): Female Sexual Orientation (if Verbalized by the Patient): Straight or Heterosexual Spiritual care concerns: No Exam Day of Procedure 03/22/22 17:35 Patient weight: morbidly obese Heart: regular rate and rhythm Lungs: normal air movement Airway: Mallampati scale Neurological: alert and oriented
--- NOTE | 2022-03-22 18:00 | LDADM ---
This patient, Bailee Hillman, was admitted to Labor/Delivery/Recovery 107 on 03/22/22 at 16:56. Plans for labor, pain management and were discussed with patient. Patient/family oriented to hospital policies and general routines including ID bracelet, bed and alarms, visiting hours, pain management, procedures, bathroom and other care routines, personal items, smoking policy, room service/diet and guest tray routines, security routines, and visiting hours. Patient/Family are encouraged to report perceived risks to care and to ask questions if they do not understand what they are told or what they should do. See OBIX for further documentation.
[2022-03-22] MEDS: DINOPROSTONE 10 MG VAG INSERT VAGINAL (18:42)
[2022-03-22 19:07] LABS: Basophils Absolute Auto 0.1 K/mm3 (0.0-0.1); Basophils Percent Auto 0.4 % (0.2-1.2); Eosinophils Percent Auto 0.3 % (0-4.4); Hemoglobin 13.7 g/dL (12.0-15.0); Immature Granulocyte Absolute 0.05 K/mm3 (0.00-0.031); Immature Granulocyte Percent A 0.4 % (0-0.5); Lymphocytes Absolute Auto 2.44 K/mm3 (0.9-3.2); Lymphocytes Percent Auto 18.5 % (18.3-44.2); Mean Corpuscular HGB Conc 33.4 g/dl (32-36); Mean Corpuscular Hemoglobin 29.7 pg (26-34); Mean Corpuscular Volume 88.7 fl (80-100); Mean Platelet Volume 12.3 fl (7.4-10.4); Monocytes Absolute Auto 0.8 K/mm3 (0.1-0.6); Monocytes Percent Auto 5.8 % (2.6-8.5); Neutrophils Absolute Auto 9.9 K/mm3 (1.3-6.7); Neutrophils Percent Auto 74.6 % (45.5-73.1); Platelet Count Result 219 k/mm3 (150-375); Red Blood Count 4.62 M/mm3 (4.2-5.4); Red Cell Distribution Width 13.2 % (11.5-14.5); White Blood Count 13.2 K/mm3 (4.5-10.0)
[2022-03-22 19:23] LABS: Alanine Aminotransferase 17 U/L (6-35); Albumin Level 4.1 g/dL (3.5-5.1); Alkaline Phosphatase 156 U/L (38-126); Anion Gap 7 mmol/L (8-16); Aspartate Amino Transferase 26 U/L (14-36); Bilirubin,Total 0.6 mg/dL (0.2-1.3); Blood Urea Nitrogen 8 mg/dL (7-17); Calcium 9.1 mg/dL (8.4-10.2); Carbon Dioxide 25 mmol/L (22-30); Chloride 102 mmol/L (98-107); Estimated CRCL calculation 176 ml/min; Estimated Glomerular Filt Rate > 60; Glucose 82 mg/dL (65-110); Potassium 3.8 mmol/L (3.4-5.0); Sodium 134 mmol/L (137-145); Uric Acid 5.3 mg/dL (2.5-7.5)
[2022-03-22] MEDS: glyBURIDE 2.5 MG TABLET PO (21:05)
[2022-03-22] MEDS: fentaNYL CITRATE INJ (*CRX) 100 MCG/2 ML VIAL 50 MCG IV PUSH (22:29)
[2022-03-22] MEDS: fentaNYL CITRATE INJ (*CRX) 100 MCG/2 ML VIAL IV PUSH (23:34)
[2022-03-23] VITALS (142 sets, daily range): BP systolic 100–171; BP diastolic 42–118; PULSE 37–227; RESP 16–18; TEMP 36.6–37.3; O2SAT 66–100
[2022-03-23 00:31] LABS: Glucose Point of Care 66 mg/dl (65-105)
[2022-03-23 01:34] LABS: Glucose Point of Care 183 mg/dl (65-105)
[2022-03-23 05:29] LABS: Glucose Point of Care 85 mg/dl (65-105)
[2022-03-23] MEDS: LACTATED RINGERS 1,000 ML 125 ML IV CONT ×2 (05:52→13:07)
[2022-03-23] MEDS: OXYTOCIN 30 UNITS/NS 500 ML 30 UNITS/500 ML BAG IV CONT (05:52)
[2022-03-23] MEDS: fentaNYL CITRATE INJ (*CRX) 100 MCG/2 ML VIAL IV PUSH (06:28)
--- NOTE | 2022-03-23 08:48 | WPDOBADMIT ---
Obstetrics - Admit Note Admission Note: record reviewed. Additions to the history and/or subsequent changes in the physical findings follow. 26 y/o at 38 2/7 weeks here for induction of labor. She has A2DM, has been treated with glyburide 2.5 mg at bedtime. However, she has forgotten to take her glyburide for at leas the last week or so. She has a history of preeclampsia and never started ASA 81 mg because she forgot. She forgot to take her Procardia XL 30 mg sometime at the end of the second trimester. Fortunately, her bp has been OK. Fasting glucose has been in the upper 90s per her verbal report, but she has forgotten to bring in her glucose logs to her office visits for weeks. GBS neg. I have offered induction of labor because of CHTN, A2DM with poor glycemic control and noncompliance. Had Cervidil overnight, has been withdrawn. AVSS NST reactive TOCO: contractions irregularly ABD soft, nontender, gravid, vertex EXT nontender Cervix 4/50/-2. AROM with clear fluid. Accucheck this am 102 A: IUP at 38 2/7 weeks with CHTN, GDM. P: Have reviewed risks / benefits / alternatives associated with induction of labor, and she would like to proceed. Continue oxytocin. Anticipate .
[2022-03-23 08:52] LABS: Glucose Point of Care 102 mg/dl (65-105)
[2022-03-23 10:01] LABS: Rapid Plasma Reagin Non-Reactive (NonReactive)
--- NOTE | 2022-03-23 11:55 | PM.OBPNLAB ---
Pain Control Date/time seen: 03/23/22 11:55 Comfortable with epidural. AVSS NST reactive TOCO: contractions every 2-5 min Cervix 5/80/0. IUPC placed. Continue labor.
[2022-03-23 12:00] LABS: Glucose Point of Care 84 mg/dl (65-105)
--- NOTE | 2022-03-23 14:11 | PM.OBPRVD ---
OB - Delivery Note Procedure Delivery date: 03/23/22 Procedure: Induction of labor with Events: Chronic Hypertension and Gestational Diabetes Induction method: Per Cervidil Protocol Delivery augmentation: Rupture of Membranes and Pitocin Delivery monitor: External FHT, External Uterine and Internal Uterine Route of delivery: Laceration Description: Vaginal and Labial Delivery repair: vicryl (3-0) Specimen: Yes (cord blood, placenta) Quantitative Blood Loss (ml): 110 Anesthesia type: Epidural Disposition: PACU Complications: None Narrative: 26 y/o at 38 2/7 weeks gestation who presented to the hospital for induction of labor. Cervidil was placed overnight, removed the next morning. Oxytocin was administered intravenously. Amniotomy was performed with return of clear fluid. She received an epidural for pain control. Her labor progressed and her cervix dilated completely. She pushed with good effort and delivered the 's head to the perineum, followed by the body. Cord around the body was reduced. The nose and mouth were bulb suctioned. After a delay, the cord was clamped and cut. The infant was handed off the field. Cord blood was collected. The placenta delivered spontaneously and was grossly normal in appearance. The usual 3 vessel cord was noted. A shallow distal vaginal laceration was sustained, as was a left labial laceration. These were reapproximated using 3 0 Vicryl in interrupted figure of eight fashion. Excellent hemostasis resulted as did excellent reapproximation of the normal anatomy. Needle and instrument counts were correct. The patient was taken to recovery room in stable condition. The infant went to the nursery in stable condition. I was present and scrubbed for the entire delivery. [place] Baby Date of : 03/23/22 Time of : 13:55 Weeks of gestation at delivery: 38 gender: Male Weight (pounds): 7 presentation: vertex position: Right Occiput Anterior Placenta delivery description: Spontaneous and Normal Configuration Cord Vessel Description: 3 Vessels, Nuchal Cord and Delayed Cord Clamping score one minute: 8 score five minutes: 9
--- NOTE | 2022-03-23 14:15 | PM.OBDSVD ---
DS: Admitting Diagnosis Discharge Date 03/24/22 Admitting Diagnosis IUP at 38 2/7 weeks GDM with worsening glycemic control and noncompliance CHTN DS: Discharge Diagnosis Discharge Diagnosis (1) GDM, class A2: Code(s): O24.419 - Gestational diabetes mellitus in , unspecified control Status: Acute (2) Chronic hypertension affecting : Code(s): O10.919 - Unspecified pre-existing hypertension complicating , unspecified trimester Status: Acute OB - DS: Summary OB Procedures : None OB Procedures Intrapartum: Spontaneous Vag Delivery OB Procedures: : None Time Spent with Patient Time attestation: Total time spent providing and/or coordinating discharge services: DS: Data Data Completed and Pending Labs on day of discharge: Labs from last 24 hours 03/23/22 03/23/22 03/23/22 11:57 08:50 05:25 WBC RBC Hgb Hct MCV MCH MCHC RDW Plt Count MPV Immature Gran % (Auto) Neut % (Auto) Lymph % (Auto) [place] % (Auto) Eos % (Auto) Baso % (Auto) Lymph # (Auto) [place] # (Auto) Eos # (Auto) Baso # (Auto) Abs Immat Gran (auto) Absolute Neuts (auto) Absolute Nucleated RBC Nucleated RBC % Sodium Potassium Chloride Carbon Dioxide Anion Gap BUN Creatinine Estim Creat Clear Calc Estimated GFR Glucose POC Capillary Glucose 84 102 85 Uric Acid Calcium Total Bilirubin AST ALT Alkaline Phosphatase Total Protein Albumin RPR Blood Type Antibody Screen 03/23/22 03/23/22 03/22/22 01:30 00:28 18:25 WBC RBC Hgb Hct MCV MCH MCHC RDW Plt Count MPV Immature Gran % (Auto) Neut % (Auto) Lymph % (Auto) [place] % (Auto) Eos % (Auto) Baso % (Auto) Lymph # (Auto) [place] # (Auto) Eos # (Auto) Baso # (Auto) Abs Immat Gran (auto) Absolute Neuts (auto) Absolute Nucleated RBC Nucleated RBC % Sodium Potassium Chloride Carbon Dioxide Anion Gap BUN Creatinine Estim Creat Clear Calc Estimated GFR Glucose POC Capillary Glucose 183 H 66 Uric Acid Calcium Total Bilirubin AST ALT Alkaline Phosphatase Total Protein Albumin RPR Blood Type B Positive Antibody Screen Negative 03/22/22 03/22/22 03/22/22 18:25 18:24 18:24 WBC 13.2 H RBC 4.62 Hgb 13.7 Hct 41.0 MCV 88.7 MCH 29.7 MCHC 33.4 RDW 13.2 Plt Count 219 MPV 12.3 H Immature Gran % (Auto) 0.4 Neut % (Auto) 74.6 H Lymph % (Auto) 18.5 [place] % (Auto) 5.8 Eos % (Auto) 0.3 Baso % (Auto) 0.4 Lymph # (Auto) 2.44 [place] # (Auto) 0.8 H Eos # (Auto) 0.0 Baso # (Auto) 0.1 Abs Immat Gran (auto) 0.05 H Absolute Neuts (auto) 9.9 H Absolute Nucleated RBC 0.0 Nucleated RBC % 0.0 Sodium 134 L Potassium 3.8 Chloride 102 Carbon Dioxide 25 Anion Gap 7 L BUN 8 Creatinine 0.50 L Estim Creat Clear Calc 176 Estimated GFR > 60 Glucose 82 POC Capillary Glucose Uric Acid 5.3 Calcium 9.1 Total Bilirubin 0.6 AST 26 ALT 17 Alkaline Phosphatase 156 H Total Protein 7.0 Albumin 4.1 RPR Non-reactive Blood Type Antibody Screen Discharge Plan Discharge Attending physician on discharge: Jose Correia Discharging Clinician: Jose Correia Patient Disposition: Home, Self-Care Activity: pelvic rest Diet: regular Discharge Instructions: Call or return if temperature above 100.4? F, increased abdominal pain, increased vaginal bleeding or any new problems. Stand Alone Forms: General Discharge Information Follow-up/Referrals: Jose Correia MD [Physician] - 6 Weeks Discharge Medications: New ibuprofen 600 mg tablet 600 mg PO Q6H PRN (Reason: cramps) Qty: 30 0RF
--- NOTE | 2022-03-23 18:13 | OBPPTRN ---
1704 Patient transferred to post room #286 via W/C. Support person present. Oriented to unit, room, information board, rooming in, admission packet and security measures. Patient verbalizes understanding.
[2022-03-23] MEDS: DOCUSATE SODIUM 100 MG CAPSULE PO (19:19)
[2022-03-23] MEDS: IBUPROFEN 600 MG TABLET PO (19:20)
[2022-03-23] MEDS: LANOLIN (LANSINOH) 7.5 GM CREAM 1 APPLIC TOPICAL (19:34)
[2022-03-24 04:15] VITALS: BP 118/72; PULSE 84; RESP 14; TEMP 36.7; O2SAT 98
[2022-03-24] MEDS: IBUPROFEN 600 MG TABLET PO (04:21)
[2022-03-24 04:52] LABS: Hematocrit 34.5 % (37.0-47.0); Hemoglobin 11.2 g/dL (12.0-15.0)
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
[2022-03-24 08:00] VITALS: BP 129/76; PULSE 85; RESP 18; TEMP 36.6; O2SAT 98
[2022-03-24] MEDS: MULTIVIT/MIN/PREN/FOL AC/IRON TABLET 1 TAB PO (09:18)
[2022-03-24] MEDS: SERTRALINE HCL 50 MG TABLET PO (09:18)
[2022-03-24] MEDS: DOCUSATE SODIUM 100 MG CAPSULE PO (09:18)
[2022-03-24] MEDS: ACETAMINOPHEN 325 MG TABLET 650 MG PO (09:19)
--- NOTE | 2022-03-24 09:28 | WPDANLDPN2 ---
Anes-Prog Note L&D Date/Time: 03/24/22 09:28 Comfortable throughout: labor and delivery Neuraxial method: epidural Epidural/Spinal procedure site: clean & non-tender Neuro status: Neuro function grossly intact. Cardiovascular status: normal Respiratory status: normal Airway patency: baseline Mental status: baseline Post-Op hydration status: normal Vital Signs: Last Vital Signs Temp 98 F 03/24/22 08:00 Pulse 85 03/24/22 08:00 Resp 18 03/24/22 08:00 BP 129/76 03/24/22 08:00 Pulse Ox 98 03/24/22 08:00 O2 Del Method Room Air 03/23/22 19:15 Pain score (VAS): 0 I/O: Intake & Output 03/23/22 03/24/22 03/24/22 23:59 07:59 15:59 Intake Total 500 Balance 500 Post-procedural complaints: none Patient feedback: Patient satisfied with anesthetic care.
[2022-03-24 12:08] VITALS: BP 140/75; PULSE 88; RESP 18; TEMP 37.3; O2SAT 97
--- NOTE | 2022-03-24 12:59 | PM.OBPNVD ---
OB - PN: Subj Subjective Date/time seen: 03/24/22 12:59 Narrative: Pain OK. Wants circumcision for son. Would like to go home. OB - PN: Obj Data Labs 03/24/22 04:12 03/22/22 18:24 Labs: Laboratory Results - last 24 hr 03/24/22 04:12 Hgb 11.2 L Hct 34.5 L OB - PN A/P Plan Comments: A: PPD#1, doing well. P: Reviewed circ. Home to f/u 6 weeks. Exam Psych: Other: AVSS ABD soft, nontender, fundus firm EXT nontender
--- NOTE | 2022-03-24 13:58 | PC.NURSE ---
[id number] Introductions made and Mother led the conversation with her experience using a nipple shield without practicing taking it off/on, no additional pumping and plans to feed her infant like she did her 1st child. She states so far that she has the ability to independently latch infant optimally without discomfort using the nipple shield. Mother did teach back on how to properly apply a nipple shield and states that there is milk in the nipple shield with . Mother has made an informed decision to not pump regularly related to her belief that put her into oversupply the last time. Reviewed appropriate output to measure intake. Follow up appt will assess jaundice levels again and to keep on demand. Reminded mother to use good handwashing technique to prevent infection. Mother is feeding appropriately for growth of and understands stimulating infant to eat if needed. has had appropriate feedings in the last 24 hours meets the outcomes for weight, output (5 stools) and jaundice at this time. Mother states she is confident to continue her infant at home with a nipples shield, when to call for assistance and denies any additional assistance or education at this time. Reinforced understanding of milk production, transition of milk, signs of adequate intake, prevention/relief of engorgement, responsive after visualizing feeding cues, the different methods of stimulating to breastfeed 2-3 hours after the start of the last feeding, community resources, medication information reviewed per [facility], mother's medical history as it relates to , when to call a provider using resource handout and the mom/baby guide. Mother voiced understanding of the education shared. Reported to the primary RN.
[2022-03-25 08:44] VITALS: BP 126/76; PULSE 98; RESP 20; TEMP 37.3; O2SAT 97
== END 2022-03-24 15:53 | disposition home or self-care (01) | DRG 560 ==
LOC: ANHLDR 03-23 14:17 → ANHOB2 03-23 17:16
PROVIDERS: Admitting Provider Obstetrics & Gynecology; Visit Provider Obstetrics & Gynecology
DX: O10.92 Unspecified pre-existing hypertension complicating childbirth (principal); O24.425 Gestational diabetes mellitus in childbirth, controlled by oral hypoglycemic drugs; O69.2XX0 Labor and delivery complicated by other cord entanglement, with compression, not applicable or unspecified; O70.0 First degree perineal laceration during delivery; O76 Abnormality in fetal heart rate and rhythm complicating labor and delivery; Z3A.38 38 weeks gestation of pregnancy; Z37.0 Single live birth; Z91.199 Patient's noncompliance with other medical treatment and regimen due to unspecified reason
CPT/HCPCS: 36415; 59025; 80053; 82570; 82948; 84156; 84550; 85014; 85018; 85025; 86592; 86850; 86900; 86901; 88307; 99199; A9270; J2590; J2795; J3010; J7120

== ENCOUNTER 2023-03-29 10:40 | Emergency (ER) | payer OTHER, SELFPAY ==
[2023-03-29 10:47] VITALS: BP 147/80; PULSE 100; RESP 20; TEMP 37.2; O2SAT 98
--- NOTE | 2023-03-29 11:14 | ED.GENADULT ---
HPI - General Adult General Chief complaint: Upper Respiratory Infection Stated complaint: Fever, Sore Throat, Earache Source: patient, RN notes reviewed and old records reviewed Mode of arrival: ambulatory Limitations: no limitations History of Present Illness HPI narrative: 27-year-old female presents to [facility] with complaints of cough, congestion, bilateral ear pain, sore throat, body aches, fever this started 3-4 days ago. Patient states son was recently in the hospital for influenza A. Patient denies chest pain, shortness of breath, weakness, dizziness, vomiting. MD complaint: Cough/congestio Onset (ago): day(s) (3-4) Related Data Home Medications Medication Instructions Recorded Confirmed nifedipine 30 mg tablet,extended 30 mg PO DAILY 03/29/23 03/29/23 release 24 hr sumatriptan succinate 100 mg tablet 100 mg PO DAILY PRN Migraine 03/29/23 03/29/23 Headache Allergies Allergy/AdvReac Type Severity Reaction Status Date / Time clindamycin Allergy Intermediate Hives Verified 03/29/23 11:04 Review of Systems Constitutional: Constitutional: Reports as per HPI, Reports body ache(s), Denies chills, Denies fatigue, Reports fever(s) and Reports headache(s) Eyes: Eyes: Reports no additional eye complaints and Denies blurry vision ENT: Reports as per HPI, Denies vertigo, Denies dizziness, Denies ear discharge, Reports otalgia, Denies facial pain, Denies headache(s), Reports nasal congestion, Reports nasal discharge, Denies sinus pain, Reports sinus pressure and Reports sore throat Cardiovascular: Cardiovascular: Reports no additional cardiovascular complaints, Denies chest pain, Denies chest pain at rest, Denies rapid heart rate and Denies dyspnea Respiratory: Respiratory: Reports no additional respiratory complaints, Reports chest congestion, Reports cough, Denies pain on inspiration, Denies pain with cough and Denies dyspnea Gastrointestinal: Gastrointestinal: Denies abdominal pain, Denies diarrhea, Denies nausea and Denies vomiting Integumentary/Breasts: Skin/Breast: Denies rash Neurologic: Reports system reviewed and no additional complaints, except as documented, Denies vertigo, Denies dizziness and Denies headache(s) Endocrine: Endocrine: Denies fatigue [facility] Past Medical History Medical History (Updated 03/29/23 @ 11:16 by Xi Y. Blankley, CAR PINCHER) Anxiety and depression Asthma Bronchitis Chronic otitis media GDM (gestational diabetes mellitus), class A1 Hypertension Multiple thyroid nodules Preeclampsia Rhinitis Scoliosis Tonsillitis Surgical History Surgical History (Updated 07/13/22 @ 09:30 by Andrade Guerra) History of tonsillectomy History of tympanostomy Family History Family History (Updated 10/07/22 @ 09:21 by Erlinda Pacheco MA) Grandparent Diabetes mellitus Grandparent Diabetes mellitus Sibling Asthma Family history of attention deficit hyperactivity disorder (ADHD) Sibling Asthma Mother Depression Social History Social History (Updated 10/07/22 @ 09:22 by Erlinda Pacheco MA) Smoking status: Former smoker Tobacco type: cigarettes Second hand tobacco smoke exposure: Yes Alcohol intake: never Substance use: never Lack of Transportation: No Lack of Food: Never True Current Housing: I Have Housing Concerned About Future Housing: No Difficulty Paying Gas/Electric Bills: No Difficulty Paying for Meds: No Currently Unemployed: No Education: High School Diploma/GED Difficulty w/ Childcare or Family Care: No Living arrangements: with family Occupation/Education: occupation Gender identity (if verbalized by the patient): Female Sexual Orientation (if Verbalized by the Patient): Straight or Heterosexual Spiritual care concerns: No Comments At the time of my signature, I reviewed and agree with the nursing past medical, surgical, social, and family history. There is no relevant family history pertinent to the patient com
== END 2023-03-29 11:20 | disposition home or self-care (01) ==
PROVIDERS: Emergency Provider Registered Nurse; PCP Nurse Practitioner Adult Health
DX: J10.1 Influenza due to other identified influenza virus with other respiratory manifestations (principal); Z20.822 Contact with and (suspected) exposure to COVID-19; Z87.891 Personal history of nicotine dependence; J45.909 Unspecified asthma, uncomplicated; I10 Essential (primary) hypertension; M41.9 Scoliosis, unspecified
CPT/HCPCS: 87081; 87426; 87804; 87880; 99213; C9803; G0463

== ENCOUNTER 2023-04-09 10:55 | Emergency (ER) | payer OTHER, SELFPAY ==
[2023-04-09 11:06] VITALS: BP 136/78; PULSE 112; RESP 16; TEMP 36.7; O2SAT 96
--- NOTE | 2023-04-09 11:34 | ED.NAVMDI ---
HPI - Nausea/Vomiting/Diarrhea General Chief complaint: Nausea/Vomiting/Diarrhea Stated complaint: nausea/diarrahea Time Seen by Provider: 04/09/23 11:40 Source: patient and RN notes reviewed Mode of arrival: ambulatory Limitations: no limitations History of Present Illness HPI Narrative: 27-year-old female who is 18 weeks presents with concern for nausea, vomiting, diarrhea that started yesterday. She reports she is unable to keep fluids down, she feels like her urine output is less. She reports she had influenza a couple weeks ago and those symptoms improved. She denies fever, aches, chills, sweats. Denies any upper respiratory symptoms. Reports her toddler had similar symptoms of nausea, vomiting, diarrhea. MD elicited complaint: nausea, vomiting and diarrhea Related Data Home Medications Medication Instructions Recorded Confirmed nifedipine 30 mg tablet,extended 30 mg PO DAILY 03/29/23 03/29/23 release 24 hr sumatriptan succinate 100 mg tablet 100 mg PO DAILY PRN Migraine 03/29/23 03/29/23 Headache Allergies Allergy/AdvReac Type Severity Reaction Status Date / Time clindamycin Allergy Intermediate Hives Verified 03/29/23 11:04 Review of Systems Review of Systems: CONSTITUTIONAL: Denies malaise, chills, sweats, or fever. ENT: Denies rhinorrhea, congestion, sinus pain, otalgia or sore throat. CARDIOVASCULAR: Denies chest pain, palpitations, or edema. RESPIRATORY: Denies cough or dyspnea. GASTROINTESTINAL: Denies abdominal pain, nausea, vomiting, diarrhea, bloody, or mucous stools. GENITOURINARY: Denies dysuria or hematuria. MUSCULOSKELETAL: Denies myalgia. NEUROLOGIC: Denies headache. All systems reviewed & are unremarkable except as noted in HPI and below [facility] Past Medical History Medical History (Updated 04/09/23 @ 11:58 by Felipa Collier NP) Anxiety and depression Asthma Bronchitis Chronic otitis media GDM (gestational diabetes mellitus), class A1 Hypertension Multiple thyroid nodules Preeclampsia Rhinitis Scoliosis Tonsillitis Surgical History Surgical History (Updated 07/13/22 @ 09:30 by Andrade Guerra) History of tonsillectomy History of tympanostomy Family History Family History (Updated 10/07/22 @ 09:21 by Erlinda Pacheco MA) Grandparent Diabetes mellitus Grandparent Diabetes mellitus Sibling Asthma Family history of attention deficit hyperactivity disorder (ADHD) Sibling Asthma Mother Depression Social History Social History (Updated 10/07/22 @ 09:22 by Erlinda Pacheoc MA) Smoking status: Former smoker Tobacco type: cigarettes Second hand tobacco smoke exposure: Yes Alcohol intake: never Substance use: never Lack of Transportation: No Lack of Food: Never True Current Housing: I Have Housing Concerned About Future Housing: No Difficulty Paying Gas/Electric Bills: No Difficulty Paying for Meds: No Currently Unemployed: No Education: High School Diploma/GED Difficulty w/ Childcare or Family Care: No Living arrangements: with family Occupation/Education: occupation Gender identity (if verbalized by the patient): Female Sexual Orientation (if Verbalized by the Patient): Straight or Heterosexual Spiritual care concerns: No Comments At time of signature, agree with nursing past medical, surgical, social and family history. There is no relevant family history pertinent to the presenting complaint Exam Narrative: GENERAL: Well-appearing, well-nourished, and in no acute distress. HEAD: Normocephalic, atraumatic. EYES: PERRLA, conjunctivae clear, and EOMI. ENT: Nares clear, turbinates pink, no rhinorrhea or epistaxis. Mucous membranes moist. Oropharynx without edema, erythema, or lesions. Tonsils not enlarged and without exudate. NECK: Supple. No lymphadenopathy CHEST: Speaks in full sentences. No respiratory distress. HEART: Regular rate and rhythm. ABDOMEN: Soft, flat, nondistended, nontender. No guardin
== END 2023-04-09 12:03 | disposition home or self-care (01) ==
PROVIDERS: Emergency Provider Nurse Practitioner; PCP Nurse Practitioner Adult Health
DX: O21.9 Vomiting of pregnancy, unspecified (principal); Z3A.18 18 weeks gestation of pregnancy; O99.612 Diseases of the digestive system complicating pregnancy, second trimester; K92.89 Other specified diseases of the digestive system; R19.7 Diarrhea, unspecified; O99.519 Diseases of the respiratory system complicating pregnancy, unspecified trimester; J45.909 Unspecified asthma, uncomplicated; O24.419 Gestational diabetes mellitus in pregnancy, unspecified control; O16.9 Unspecified maternal hypertension, unspecified trimester
CPT/HCPCS: 81003; 87086; 87088; 99213; G0463

== ENCOUNTER 2023-04-09 12:54 | Emergency (ER) | payer OTHER, SELFPAY ==
[2023-04-09 12:56] VITALS: BP 143/82; PULSE 105; RESP 20; TEMP 36.8; O2SAT 100
[2023-04-09 13:09] LABS: Basophils Percent Auto 0.3 % (0.2-1.2); Eosinophils Percent Auto 0.2 % (0-4.4); Hematocrit 40.6 % (37.0-47.0); Hemoglobin 13.1 g/dL (12.0-15.0); Immature Granulocyte Absolute 0.06 K/mm3 (0.00-0.031); Immature Granulocyte Percent A 0.5 % (0-0.5); Lymphocytes Absolute Auto 1.43 K/mm3 (0.9-3.2); Lymphocytes Percent Auto 12.2 % (18.3-44.2); Mean Corpuscular HGB Conc 32.3 g/dl (32-36); Mean Corpuscular Hemoglobin 27.9 pg (26-34); Mean Corpuscular Volume 86.4 fl (80-100); Mean Platelet Volume 10.3 fl (7.4-10.4); Monocytes Absolute Auto 0.7 K/mm3 (0.1-0.6); Monocytes Percent Auto 5.5 % (2.6-8.5); Neutrophils Absolute Auto 9.5 K/mm3 (1.3-6.7); Neutrophils Percent Auto 81.3 % (45.5-73.1); Platelet Count Result 257 k/mm3 (150-375); Red Cell Distribution Width 13.3 % (11.5-14.5); White Blood Count 11.7 K/mm3 (4.5-10.0)
[2023-04-09 13:26] LABS: Alanine Aminotransferase 18 U/L (6-35); Albumin Level 4.3 g/dL (3.5-5.1); Alkaline Phosphatase 86 U/L (38-126); Anion Gap 10 mmol/L (8-16); Aspartate Amino Transferase 21 U/L (14-36); Bilirubin,Total 0.7 mg/dL (0.2-1.3); Blood Urea Nitrogen 10 mg/dL (7-17); Calcium 8.8 mg/dL (8.4-10.2); Carbon Dioxide 23 mmol/L (22-30); Chloride 103 mmol/L (98-107); Estimated CRCL calculation 176 ml/min; Estimated Glomerular Filt Rate > 60; Glucose 95 mg/dL (65-110); Lipase 100 U/L (23-300); Potassium 3.6 mmol/L (3.4-5.0); Sodium 136 mmol/L (137-145)
[2023-04-09] MEDS: METOCLOPRAMIDE HCL INJ 10 MG/2 ML VIAL (13:27)
[2023-04-09] MEDS: SODIUM CHLORIDE 0.9% IV 1,000 ML 999 ML IV CONT (13:29)
[2023-04-09 13:32] LABS: Appearance Urine Turbid (Clear); Bacteria Urine 4+ /hpf; Bilirubin Urine 1+ (Negative); Blood Urine 1+ (Negative); Color Urine Dark Yellow (Yellow); Glucose Urine UA Negative (Negative); Ketones Urine 1+ mg/dL (Negative); Leukocyte Esterase Ur 3+ LEU/UL (Negative); Need Manual Microscopic Reviewed; Nitrate Urine Negative (Negative); Protein Urine 1+ mg/dL (Negative); Specific Grav Ur 1.027 (1.001-1.035); Squamous Epithelial Cell Urine Many /hpf (Few); WBC Clumps Urine Present /HPF; WBC Urine >100 /hpf
[2023-04-09 13:56] LABS: Add Urine Microscopic? YES
--- NOTE | 2023-04-09 14:02 | ED.GENADULT ---
HPI - General Adult General Chief complaint: Nausea/Vomiting/Diarrhea Stated complaint: n/v/d Time Seen by Provider: 04/09/23 13:33 History of Present Illness HPI narrative: 27-year-old female presenting the emergency department for evaluation of nausea vomiting dehydration. Patient is currently 18 weeks . Patient reports she has had worsening nausea and vomiting over the last 2 days. Patient reports her son also has similar symptoms. Patient presented to the urgent care for evaluation and she was referred to the emergency department. Patient states she was having some lower abdominal cramping but after getting the Reglan and IV fluids the cramping has resolved. Related Data Home Medications Medication Instructions Recorded Confirmed nifedipine 30 mg tablet,extended 30 mg PO DAILY 03/29/23 03/29/23 release 24 hr sumatriptan succinate 100 mg tablet 100 mg PO DAILY PRN Migraine 03/29/23 03/29/23 Headache Allergies Allergy/AdvReac Type Severity Reaction Status Date / Time clindamycin Allergy Intermediate Hives Verified 03/29/23 11:04 Review of Systems Review of Systems: All systems reviewed & are unremarkable except as noted in HPI and below [facility] Past Medical History Medical History (Updated 04/09/23 @ 14:29 by Con Gates MD) Anxiety and depression Asthma Bronchitis Chronic otitis media GDM (gestational diabetes mellitus), class A1 Hypertension Multiple thyroid nodules Preeclampsia Rhinitis Scoliosis Tonsillitis Surgical History Surgical History (Updated 07/13/22 @ 09:30 by Andrade Guerra) History of tonsillectomy History of tympanostomy Family History Family History (Updated 10/07/22 @ 09:21 by Erlinda Pacheco MA) Grandparent Diabetes mellitus Grandparent Diabetes mellitus Sibling Asthma Family history of attention deficit hyperactivity disorder (ADHD) Sibling Asthma Mother Depression Social History Social History (Updated 10/07/22 @ 09:22 by Erlinda Pacheco MA) Smoking status: Former smoker Tobacco type: cigarettes Second hand tobacco smoke exposure: Yes Alcohol intake: never Substance use: never Lack of Transportation: No Lack of Food: Never True Current Housing: I Have Housing Concerned About Future Housing: No Difficulty Paying Gas/Electric Bills: No Difficulty Paying for Meds: No Currently Unemployed: No Education: High School Diploma/GED Difficulty w/ Childcare or Family Care: No Living arrangements: with family Occupation/Education: occupation Gender identity (if verbalized by the patient): Female Sexual Orientation (if Verbalized by the Patient): Straight or Heterosexual Spiritual care concerns: No Exam Narrative: APPEARANCE: Well appearing, no pain, no distress, well-nourished. HEAD: normocephalic, atraumatic. EYES: PERRLA/EOMI, conjunctivae clear. NOSE: Normal no drainage NECK: Supple. No adenopathy, no masses. RESPIRATORY: Airway patent, respirations nonlabored. Clear to auscultation bilaterally, no rales, rhonchi, wheezing. CARDIOVASCULAR: Regular rate and rhythm without murmurs rubs or gallops. ABDOMINAL: Suprapubic abdominal tenderness to palpation MUSCULOSKELETAL: Moves all extremities. Strength/ROM intact, No edema, No calf tenderness. NEURO: Alert. Cranial nerves II through XII intact. Grossly intact SKIN: Warm, dry. Normal Color Course Course Emergency Course: 27-year-old female that is 18 weeks presented to the ED for evaluation nausea vomiting and lower abdominal cramping. Patient is feeling active movement. Patient is afebrile but does have a leukocytosis of 11.7. No significant abnormalities on her CMP urine is concerning for urinary tract infection. Patient was started on antibiotics in the ED. Patient was also provided and nausea medications for home. All questions concerns were addressed patient was comfortable the plan for discharge and close follow-up. Vi
[2023-04-09 14:54] LABS: Influenza A QL RT-PCR Negative (Negative); Influenza B QL RT-PCR Negative (Negative); RSV RNA, RT-PCR Negative (Negative); SARS-CoV-2 RNA PCR Negative (Negative)
== END 2023-04-09 14:47 | disposition home or self-care (01) ==
PROVIDERS: Emergency Provider Emergency Medicine; PCP Nurse Practitioner Adult Health
DX: O23.42 Unspecified infection of urinary tract in pregnancy, second trimester (principal); N39.0 Urinary tract infection, site not specified; O99.282 Endocrine, nutritional and metabolic diseases complicating pregnancy, second trimester; E86.0 Dehydration; O26.892 Other specified pregnancy related conditions, second trimester; R10.9 Unspecified abdominal pain; Z20.822 Contact with and (suspected) exposure to COVID-19; O16.2 Unspecified maternal hypertension, second trimester; O99.512 Diseases of the respiratory system complicating pregnancy, second trimester; J45.909 Unspecified asthma, uncomplicated; E04.1 Nontoxic single thyroid nodule; Z87.891 Personal history of nicotine dependence; Z3A.18 18 weeks gestation of pregnancy
CPT/HCPCS: 36415; 80053; 81001; 81003; 81025; 83690; 85025; 87086; 87637; 96361; 96365; 96375; 99284; J0696; J2765; J7030

== ENCOUNTER 2023-04-21 14:51 | Outpatient (CLI) | payer OTHER, SELFPAY ==
--- NOTE | ~2023-04-21 | US_ITS ---
EXAMINATION: US OB /maternal detail DATE: 04/21/2023 16:12 INDICATION: Encounter for screening. TECHNIQUE: Real-time ultrasound of the pelvis was performed. COMPARISON: None. FINDINGS: There is a single living fetus in breech presentation. The placenta is left anterior, well away from the cervix. heart rate is 138 beats per minute (bpm). The cervical length is 4.9 cm on transab dominal images, which is normal. The amniotic fluid index is 14.1 cm, which is normal. The following biometric data were obtained: Biparietal diameter (BPD): 4.5 cm; head circumference (HC): 17.4 cm; abdominal circumference (AC): 14 .6 cm; femur length (FL): 3.1 cm. These measurements are concordant. Estimated weight is 313 g +/- 47 g, which correlates with the 50th percentile when 09/10/23 is u sed as estimated date of delivery. As single measurements, these parameters are each equal to the following estimated gestational ages: BPD: 19 weeks 4 days. HC: 20 weeks 0 days. AC: 19 weeks 6 days. FL: 19 weeks 5 days. estimated gestational age based solely on measurements from this exam is 19 weeks 6 days +/- 1 weeks 3 days. The cerebral ventricles, cerebellum, cisterna magna, nuchal fold, lip, and visualized portions of the spine are normal. The heart is normal. The diaphragm, stomach, kidneys, and bladder are normal. Ther e are two umbilical arteries to yield a 3-vessel cord. The cord insertion is normal. IMPRESSION: 1. Single living fetus in breech presentation. 2. Estimated weight is 313 g +/- 47 g, which correlates with the 50th percentile when 09/10/23 is used as estimated date of delivery. 3. Normal anatomic survey. Reviewed, dictated and finalized at location A. AL OPERATOR TECHNICAL IMPRESSION: 1. Single living fetus in breech presentation. 2. Estimated weight is 313 g +/- 47 g, which correlates with the 50th pe rcentile when 09/10/23 is used as estimated date of delivery. 3. Normal anatomic survey.
== END 2023-04-21 14:52 | disposition home or self-care (01) ==
LOC: ANHIMG 14:53
PROVIDERS: PCP Nurse Practitioner Adult Health; Visit Provider Obstetrics & Gynecology
DX: Z36.3 Encounter for antenatal screening for malformations (principal)
CPT/HCPCS: 76805

== ENCOUNTER 2023-07-31 21:55 | Emergency (ER) | payer OTHER, SELFPAY ==
--- NOTE | ~2023-07-31 | XR_ITS ---
XR foot RT 2V 07/31/2023 22:16 INDICATION: Right foot pain PROCEDURE: 2 views right foot COMPARISON: No prior studies for comparison. FINDINGS: Fracture, dislocation or subluxation is not identified. The soft tissues appear within norm al limits. No foreign bodies are identified. IMPRESSION: 1: NO ACUTE BONE OR JOINT ABNORMALITY IDENTIFIED. Reviewed, dictated and finalized at location A.
[2023-07-31 22:03] VITALS: BP 141/90; PULSE 99; RESP 20; TEMP 36.8; O2SAT 100
--- NOTE | 2023-07-31 22:13 | PC.NURSE ---
care and report given to GEOVANY Christiansen. all questions answered.
[2023-07-31] MEDS: CEPHALEXIN 500 MG CAPSULE PO (22:15)
--- NOTE | 2023-07-31 22:18 | ED.GENADULT ---
HPI - General Adult General Chief complaint: Extremity Injury, Lower Stated complaint: right foot injury Time Seen by Provider: 07/31/23 21:58 History of Present Illness HPI narrative: patient is a 28-year-old female presents emergency department with chief complaint of nail stuck in foot patient reports she was walking to her shed stepped on a small board that had a expose nail. The patient reports that the nail was stuck in her foot the patient comes in bringing the board with a nail stuck into her foot and attached tools or foot the patient reports that he is not really sure of her last tetanus status Related Data Home Medications Medication Instructions Recorded Confirmed nifedipine 30 mg tablet,extended 30 mg PO DAILY 03/29/23 03/29/23 release 24 hr sumatriptan succinate 100 mg tablet 100 mg PO DAILY PRN Migraine 03/29/23 03/29/23 Headache Allergies Allergy/AdvReac Type Severity Reaction Status Date / Time clindamycin Allergy Intermediate Hives Verified 03/29/23 11:04 Review of Systems Review of Systems: A 10 system review of systems was completed on the patient and is negative except for what is stated in the HPI. Nursing and ancillary documentation was reviewed. [facility] Past Medical History Medical History Anxiety and depression Asthma Bronchitis Chronic otitis media GDM (gestational diabetes mellitus), class A1 Hypertension Multiple thyroid nodules Preeclampsia Rhinitis Scoliosis Tonsillitis Surgical History Surgical History History of tonsillectomy History of tympanostomy Family History Family History Grandparent Diabetes mellitus Grandparent Diabetes mellitus Sibling Asthma Family history of attention deficit hyperactivity disorder (ADHD) Sibling Asthma Mother Depression Social History Social History Smoking status: Former smoker Tobacco type: cigarettes Second hand tobacco smoke exposure: Yes Alcohol intake: never Substance use: never Lack of Transportation: No Lack of Food: Never True Current Housing: I Have Housing Concerned About Future Housing: No Difficulty Paying Gas/Electric Bills: No Difficulty Paying for Meds: No Currently Unemployed: No Education: High School Diploma/GED Difficulty w/ Childcare or Family Care: No Living arrangements: with family Occupation/Education: occupation Gender identity (if verbalized by the patient): Female Sexual Orientation (if Verbalized by the Patient): Straight or Heterosexual Spiritual care concerns: No Exam Narrative: GENERAL: Well-appearing, well-nourished, and in no acute distress. HEAD: Normocephalic, atraumatic. EYES: PERRLA and EOMI. ENT: Nares clear, no rhinorrhea or epistaxis. Mucous membranes moist. NECK: Supple. CHEST: Clear to auscultation. No respiratory distress. HEART: Regular rate and rhythm. No murmur heard. Normal peripheral pulses. ABDOMEN: Soft, nontender, nondistended, normal active bowel sounds. EXTREMITIES: Normal range of motion. No edema. there is a small board with expose nails that 1 of the nails is penetrating the patient shoe and is imbedded into her foot SKIN: Warm, dry, no rash. NEURO: No focal deficits. Alert and oriented x3. PSYCH: Normal mood and affect. Course Vital Signs Vital signs: Vital Signs Temperature 36.8 C 07/31/23 22:03 Pulse Rate 99 07/31/23 22:03 Respiratory Rate 20 07/31/23 22:03 Blood Pressure 141/90 H 07/31/23 22:03 Pulse Oximetry 100 07/31/23 22:03 Temperature 36.8 C 07/31/23 22:03 Pulse Rate 99 07/31/23 22:03 Respiratory Rate 20 07/31/23 22:03 Blood Pressure 141/90 H 07/31/23 22:03 Pulse Oximetry 100 07/31/23 22:03 Procedures
== END 2023-07-31 23:00 | disposition home or self-care (01) ==
PROVIDERS: Emergency Provider Emergency Medicine; PCP Nurse Practitioner Adult Health
DX: S91.341A Puncture wound with foreign body, right foot, initial encounter (principal); I10 Essential (primary) hypertension; J45.909 Unspecified asthma, uncomplicated; Z87.891 Personal history of nicotine dependence; W45.0XXA Nail entering through skin, initial encounter
CPT/HCPCS: 73620; 99283; A9270

== ENCOUNTER 2023-08-19 15:58 | Outpatient (RCR) | payer OTHER, SELFPAY ==
[2023-07-21 17:36] VITALS: BP 140/86; PULSE 98
[2023-07-26 18:06] VITALS: BP 131/82; PULSE 113
[2023-07-30 17:53] VITALS: BP 124/87; PULSE 92
--- NOTE | 2023-08-05 18:10 | PC.NURSE ---
SVE 3external, closed internal/thick/-3.
[2023-08-05 18:25] VITALS: BP 139/79; PULSE 85
[2023-08-09 17:47] VITALS: BP 134/84; PULSE 90
[2023-08-13 11:48] VITALS: BP 132/82; PULSE 100
[2023-08-16 15:28] VITALS: BP 141/92; PULSE 113
[2023-08-19 16:27] VITALS: BP 129/85; PULSE 118
== END 2023-10-19 23:59 | disposition home or self-care (01) ==
LOC: ANHOBOP 15:58
PROVIDERS: PCP Nurse Practitioner Adult Health; Visit Provider Obstetrics & Gynecology
DX: O24.419 Gestational diabetes mellitus in pregnancy, unspecified control (principal); O16.3 Unspecified maternal hypertension, third trimester; Z3A.32 32 weeks gestation of pregnancy
CPT/HCPCS: 59025

== ENCOUNTER 2023-08-24 06:31 | Inpatient (IN) | payer OTHER, SELFPAY ==
[2023-08-24] VITALS (153 sets, daily range): BP systolic 106–158; BP diastolic 53–99; PULSE 63–175; RESP 18; TEMP 36.4–37.4; O2SAT 88–100; BMI 44.7
--- NOTE | 2023-08-24 06:31 | LDADM ---
This patient, Bailee Hillman, was admitted to Labor/Delivery/Recovery 107 on 08/24/23 at 06:31. Plans for labor, pain management and were discussed with patient. Patient/family oriented to hospital policies and general routines including ID bracelet, bed and alarms, visiting hours, pain management, procedures, bathroom and other care routines, personal items, smoking policy, room service/diet and guest tray routines, security routines, and visiting hours. Patient/Family are encouraged to report perceived risks to care and to ask questions if they do not understand what they are told or what they should do. See OBIX for further documentation.
[2023-08-24 07:06] LABS: Basophils Absolute Auto 0.1 K/mm3 (0.0-0.1); Basophils Percent Auto 0.5 % (0.2-1.2); Eosinophils Absolute Auto 0.1 K/mm3 (0-0.3); Eosinophils Percent Auto 0.9 % (0-4.4); Hematocrit 35.5 % (37.0-47.0); Hemoglobin 11.8 g/dL (12.0-15.0); Immature Granulocyte Absolute 0.03 K/mm3 (0.00-0.031); Immature Granulocyte Percent A 0.3 % (0-0.5); Lymphocytes Percent Auto 18.6 % (18.3-44.2); Mean Corpuscular HGB Conc 33.2 g/dl (32-36); Mean Corpuscular Hemoglobin 28.7 pg (26-34); Mean Corpuscular Volume 86.4 fl (80-100); Mean Platelet Volume 11.1 fl (7.4-10.4); Monocytes Absolute Auto 0.5 K/mm3 (0.1-0.6); Monocytes Percent Auto 5.1 % (2.6-8.5); Neutrophils Absolute Auto 7.6 K/mm3 (1.3-6.7); Neutrophils Percent Auto 74.6 % (45.5-73.1); Platelet Count Result 200 k/mm3 (150-375); Red Blood Count 4.11 M/mm3 (4.2-5.4); Red Cell Distribution Width 13.4 % (11.5-14.5); White Blood Count 10.2 K/mm3 (4.5-10.0)
[2023-08-24 07:15] LABS: Alanine Aminotransferase 19 U/L (6-35); Albumin Level 3.7 g/dL (3.5-5.1); Alkaline Phosphatase 136 U/L (38-126); Anion Gap 7 mmol/L (4-12); Aspartate Amino Transferase 21 U/L (14-36); Bilirubin,Total 0.4 mg/dL (0.2-1.3); Blood Urea Nitrogen 11 mg/dL (7-17); Calcium 9.1 mg/dL (8.4-10.2); Carbon Dioxide 20 mmol/L (22-30); Chloride 105 mmol/L (98-107); Estimated Glomerular Filt Rate > 60; Glucose 160 mg/dL (65-110); Potassium 3.7 mmol/L (3.4-5.0); Sodium 132 mmol/L (137-145)
[2023-08-24] MEDS: LACTATED RINGERS 1,000 ML 125 ML IV CONT ×3 (07:17→15:26)
[2023-08-24] MEDS: OXYTOCIN 30 UNITS/NS 500 ML 30 UNITS/500 ML BAG IV CONT (07:18)
[2023-08-24 07:49] LABS: Uric Acid 5.7 mg/dL (2.5-7.5)
[2023-08-24 07:56] LABS: HIV 1/2 Ab P24 Ag Result Negative (Negative)
[2023-08-24 08:47] LABS: Glucose Point of Care 124 mg/dl (65-105)
--- NOTE | 2023-08-24 08:58 | WPDOBADMIT ---
Obstetrics - Admit Note Admission Note: record reviewed. Additions to the history and/or subsequent changes in the physical findings follow. 28 y/o at 37 1/7 weeks here for induction of labor. A2DM with worsening glycemic control. CHTN on Procardia XL 30 mg daily. GBS neg. AVSS NST reactive TOCO: irregular contractions ABD soft, nontender, gravid, vertex EXT nontender Cervix 3/80/-2. AROM with clear fluid. EXT nontender A: IUP at 37 1/7 weeks with A2DM, CHTN, here for induction of labor. P: Oxytocin. Monitor bp and glucose. Anticipate .
--- NOTE | 2023-08-24 11:15 | WPDANESEPP ---
Anes - Eval Pre Procedure Procedure: labor epidural Date/Time: 08/24/23 11:15 Surgeon: Bren Preop Diagnosis: Pain during labor Pre Op Diagnosis: IOL Patient Data Age: 28 Gender: F Height: Weight: Last Vital Signs Temp 36.4 C 08/24/23 09:17 Pulse 92 08/24/23 11:01 BP 151/78 H 08/24/23 11:01 O2 Del Method Room Air 08/24/23 07:01 Allergies Allergy/AdvReac Type Severity Reaction Status Date / Time clindamycin Allergy Intermediate Hives Verified 08/16/23 15:33 Home Medications Medication Instructions Recorded Confirmed Type nifedipine 30 mg tablet,extended 30 mg PO DAILY 03/29/23 08/24/23 History release 24 hr glyburide 5 mg tablet 2.5 mg PO DAILY 08/24/23 08/24/23 History Laboratory Tests 08/24/23 08/24/23 06:43 08:37 WBC 10.2 H K/mm3 (4.5-10.0) RBC 4.11 L M/mm3 (4.2-5.4) Hgb 11.8 L g/dL (12.0-15.0) Hct 35.5 L % (37.0-47.0) MCV 86.4 fl (80-100) MCH 28.7 pg (26-34) MCHC 33.2 g/dl (32-36) RDW 13.4 % (11.5-14.5) Plt Count 200 k/mm3 (150-375) MPV 11.1 H fl (7.4-10.4) Immature Gran % (Auto) 0.3 % (0-0.5) Neut % (Auto) 74.6 H % (45.5-73.1) Lymph % (Auto) 18.6 % (18.3-44.2) Nolan % (Auto) 5.1 % (2.6-8.5) Eos % (Auto) 0.9 % (0-4.4) Baso % (Auto) 0.5 % (0.2-1.2) Lymph # (Auto) 1.90 K/mm3 (0.9-3.2) Nolan # (Auto) 0.5 K/mm3 (0.1-0.6) Eos # (Auto) 0.1 K/mm3 (0-0.3) Baso # (Auto) 0.1 K/mm3 (0.0-0.1) Abs Immat Gran (auto) 0.03 K/mm3 (0.00-0.031) Absolute Neuts (auto) 7.6 H K/mm3 (1.3-6.7) Absolute Nucleated RBC 0.000 K/mm3 (0.0-0.012) Nucleated RBC % 0.0 % (0.0-0.2) Sodium 132 L mmol/L (137-145) Potassium 3.7 mmol/L (3.4-5.0) Chloride 105 mmol/L (98-107) Carbon Dioxide 20 L mmol/L (22-30) Anion Gap 7 mmol/L (4-12) BUN 11 mg/dL (7-17) Creatinine 0.40 L mg/dL (0.7-1.0) Estim Creat Clear Calc Not Reportable Estimated GFR > 60 (59 - ) Glucose 160 H mg/dL (65-110) POC Capillary Glucose 124 H mg/dl (65-105) Uric Acid 5.7 mg/dL (2.5-7.5) Calcium 9.1 mg/dL (8.4-10.2) Total Bilirubin 0.4 mg/dL (0.2-1.3) AST 21 U/L (14-36) ALT 19 U/L (6-35) Alkaline Phosphatase 136 H U/L (38-126) Total Protein 7.0 g/dL (6.3-8.2) Albumin 3.7 g/dL (3.5-5.1) RPR Pending HIV 1&2 Ab/P24 Ag 4thGn Negative (Negative) Blood Type B Positive Antibody Screen Negative Patient hx anesthesia problems: none Family hx anesthesia problems: none Results Review: All pre-operative results and documents have been reviewed as part of the pre-operative evaluation. [facility] Past Medical History Medical History Anxiety and depression Asthma Bronchitis Chronic otitis media GDM (gestational diabetes mellitus), class A1 Hypertension Multiple thyroid nodules Preeclampsia Rhinitis Scoliosis Tonsillitis Surgical History Surgical History History of tonsillectomy History of tympanostomy Family History Family History Grandparent Diabetes mellitus Grandparent Diabetes mellitus Sibling Asthma Family history of attention deficit hyperactivity disorder (ADHD) Sibling Asthma Mother Depression Social History Social History Smoking status: Never smoker Tobacco type: cigarettes Second hand tobacco smoke exposure: Yes Alcohol intake: never Substance use: never Do You Feel Safe in your Home?: Yes Lack of Transportation: No Lack of Food: Never True Current Zac
[2023-08-24 12:12] LABS: Glucose Point of Care 93 mg/dl (65-105)
--- NOTE | 2023-08-24 13:28 | PM.OBPNLAB ---
Pain Control Date/time seen: 08/24/23 13:28 Comments: Comfortable with epidural. Pelvic Exam Dilation (cm): 6 Effacement (%): 80 station: -2 Comments: IUPC placed. Contractions Contraction frequency: 3 Contraction pattern: Regular Status status: Category l Assessment and Plan Plan: continuous present management
[2023-08-24] MEDS: ACETAMINOPHEN 500 MG TABLET 1000 MG PO (13:37)
[2023-08-24 14:35] LABS: Glucose Point of Care 91 mg/dl (65-105)
[2023-08-24 15:07] LABS: Rapid Plasma Reagin Non-Reactive (NonReactive)
[2023-08-24 16:49] LABS: Glucose Point of Care 87 mg/dl (65-105)
--- NOTE | 2023-08-24 18:24 | P.PCNOB_ITS ---
OB - Vaginal Delivery Note Procedure Delivery date: 08/24/23 Events: Chronic Hypertension and Gestational Diabetes Induction method: Per Pitocin Protocol Delivery augmentation: Rupture of Membranes Delivery monitor: External FHT, External Uterine and Internal Uterine Route of delivery: Laceration Description: None Specimen: Yes (cord blood, placenta) Quantitative Blood Loss (ml): 85 Anesthesia type: Epidural Disposition: PACU Complications: None Narrative: 28 y/o at 37 1/7 weeks gestation who presented to the hospital for induction of labor. Oxytocin was administered intravenously. Amniotomy was performed with return of clear fluid. She received an epidural for pain control. Her labor progressed and her cervix dilated completely. She pushed with good effort and delivered the 's head to the perineum, followed by the body. The nose and mouth were bulb suctioned. After a delay, the cord was clamped and cut. The infant was handed off the field. Cord blood was collected. The placenta delivered spontaneously and was grossly normal in appearance. The usual 3 vessel cord was noted. There were no lacerations. Needle and instrument counts were correct. The patient was taken to recovery room in stable condition. The went to the nursery in stable condition. I was present and scrubbed for the entire delivery. [place] [facility] Date of : 08/24/23 Time of : 18:11 Weeks of gestation at delivery: 37 Infant gender: Female presentation: vertex position: Right Occiput Anterior Placenta delivery description: Spontaneous and Normal Configuration Cord Vessel Description: 3 Vessels and Delayed Cord Clamping score one minute: 9 score five minutes: 9
--- NOTE | 2023-08-24 18:27 | PM.OBDSVD ---
DS: Admitting Diagnosis Discharge Date 08/25/23 Admitting Diagnosis IUP at 37 1/7 weeks CHTN A2DM with worsening control DS: Discharge Diagnosis Discharge Diagnosis (1) (normal spontaneous vaginal delivery): Code(s): O80 - Encounter for full-term uncomplicated delivery Status: Acute (2) GDM, class A2: Code(s): O24.419 - Gestational diabetes mellitus in , unspecified control Status: Acute (3) Chronic hypertension affecting : Code(s): O10.919 - Unspecified pre-existing hypertension complicating , unspecified trimester Status: Acute OB - DS: Summary OB Procedures : None OB Procedures Intrapartum: Spontaneous Vag Delivery OB Procedures: : None Peripartum Data Laceration Description: None Time Spent with Patient Time attestation: Total time spent providing and/or coordinating discharge services: DS: Data Data Completed and Pending Labs on day of discharge: Labs from last 24 hours 08/24/23 08/24/23 08/24/23 16:46 14:27 12:09 WBC RBC Hgb Hct MCV MCH MCHC RDW Plt Count MPV Immature Gran % (Auto) Neut % (Auto) Lymph % (Auto) [place] % (Auto) Eos % (Auto) Baso % (Auto) Lymph # (Auto) [place] # (Auto) Eos # (Auto) Baso # (Auto) Abs Immat Gran (auto) Absolute Neuts (auto) Absolute Nucleated RBC Nucleated RBC % Sodium Potassium Chloride Carbon Dioxide Anion Gap BUN Creatinine Estim Creat Clear Calc Estimated GFR Glucose POC Capillary Glucose 87 91 93 Uric Acid Calcium Total Bilirubin AST ALT Alkaline Phosphatase Total Protein Albumin RPR HIV 1&2 Ab/P24 Ag 4thGn Blood Type Antibody Screen 08/24/23 08/24/23 08:37 06:43 WBC 10.2 H RBC 4.11 L Hgb 11.8 L Hct 35.5 L MCV 86.4 MCH 28.7 MCHC 33.2 RDW 13.4 Plt Count 200 MPV 11.1 H Immature Gran % (Auto) 0.3 Neut % (Auto) 74.6 H Lymph % (Auto) 18.6 [place] % (Auto) 5.1 Eos % (Auto) 0.9 Baso % (Auto) 0.5 Lymph # (Auto) 1.90 [place] # (Auto) 0.5 Eos # (Auto) 0.1 Baso # (Auto) 0.1 Abs Immat Gran (auto) 0.03 Absolute Neuts (auto) 7.6 H Absolute Nucleated RBC 0.000 Nucleated RBC % 0.0 Sodium 132 L Potassium 3.7 Chloride 105 Carbon Dioxide 20 L Anion Gap 7 BUN 11 Creatinine 0.40 L Estim Creat Clear Calc Not Reportable Estimated GFR > 60 Glucose 160 H POC Capillary Glucose 124 H Uric Acid 5.7 Calcium 9.1 Total Bilirubin 0.4 AST 21 ALT 19 Alkaline Phosphatase 136 H Total Protein 7.0 Albumin 3.7 RPR Non-reactive HIV 1&2 Ab/P24 Ag 4thGn Negative Blood Type B Positive Antibody Screen Negative Discharge Plan Discharge Attending physician on discharge: Jose Correia Discharging Clinician: Jose Correia Patient Disposition: Home, Self-Care Activity: pelvic rest Diet: regular Discharge Instructions: Call or return if temperature above 100.4? F, increased abdominal pain, increased vaginal bleeding or any new problems. Stand Alone Forms: General Discharge Information Follow-up/Referrals: Jose Correia MD [Physician] - 6 Weeks Discharge Medications: New ibuprofen 600 mg tablet 600 mg PO Q6H PRN (Reason: cramps) Qty: 30 0RF Continued nifedipine 30 mg tablet extended release 24hr 30 mg PO DAILY Discontinued glyburide 5 mg tablet 2.5 mg PO DAILY Date of admission: 08/24/23 06:31 Primary Care Provider: Jennifer Persaud Admitting Provider: Jose Correia Attending physician on admission: Jose Correia Condition: Stable
[2023-08-24] MEDS: OXYTOCIN 30 UNITS/NS 500 ML 30 UNITS/500 ML BAG 125 UNITS IV CONT (18:42)
[2023-08-24] MEDS: IBUPROFEN 600 MG TABLET PO (20:34)
--- NOTE | 2023-08-24 20:52 | OBPPTRN ---
Patient transferred to post room #280 via wheelchair. Support person present. Oriented to unit, room, information board, rooming in, admission packet and security measures. Patient verbalizes understanding.
[2023-08-25 04:35] LABS: Hematocrit 35.5 % (37.0-47.0); Hemoglobin 11.4 g/dL (12.0-15.0)
[2023-08-25] MEDS: IBUPROFEN 600 MG TABLET PO (06:44)
[2023-08-25 07:35] VITALS: BP 138/88; PULSE 94; RESP 16; TEMP 37.3; O2SAT 98
--- NOTE | 2023-08-25 07:35 | WPDANLDPN2 ---
Anes-Prog Note L&D Date/Time: 08/25/23 07:35 Comfortable throughout: labor and delivery Neuraxial method: epidural Epidural/Spinal procedure site: tender (brusing) Neuro status: Neuro function grossly intact. Cardiovascular status: normal Respiratory status: normal Airway patency: baseline Mental status: baseline Post-Op hydration status: normal Vital Signs: Last Vital Signs Temp 36.6 C 08/24/23 23:45 Pulse 97 08/24/23 23:45 Resp 18 08/24/23 23:45 BP 135/74 08/24/23 23:45 Pulse Ox 98 08/24/23 23:45 O2 Del Method Room Air 08/24/23 07:01 Pain score (VAS): 2/10 I/O: Intake & Output 08/24/23 08/24/23 08/25/23 15:59 23:59 07:59 Intake Total 1018.7 1300 Output Total 160 Balance 1018.7 1140 Post-procedural complaints: none Patient feedback: Patient satisfied with anesthetic care.
[2023-08-25] MEDS: MULTIVIT/MIN/PREN/FOL AC/IRON TABLET 1 TAB PO (08:53)
[2023-08-25] MEDS: NIFEdipine 30 MG TAB.ER.24 PO (08:53)
--- NOTE | 2023-08-25 09:57 | PC.NURSE ---
[id number] Introductions were made, then consulted with patient to assess needs related to . Discussed with mother her?plans to feed?her infant, the?experience so far and history of using the nipple shield for 3 months with her last infant that breastfed for 14 months. Mother is confident with her plan without pumping as this is what she did with the last infant and she shared that her milk production came in just fine. Reinforced understanding of milk production, transition of milk, signs of adequate intake, transition of stool, prevention/relief of engorgement, plugged ducts, mastitis, responsive watching for feeding cues, the different methods of stimulating to breastfeed 1-3 hours after the start of the last feeding, community resources, and when to call a provider using the resource of the feeding sheet along with the mom and baby guide. Mother voiced understanding of the information shared, is confident to continue effectively her , when to call for assistance, denies any additional assistance or education at this time. Reported to the Primary RN.
[2023-08-25 12:01] VITALS: BP 141/86; PULSE 100; RESP 16; TEMP 36.5; O2SAT 98
--- NOTE | 2023-08-25 16:10 | PM.OBPNVD ---
OB - PN: Subj Subjective Date/time seen: 08/25/23 16:10 Narrative: Pain OK. Would like to go home. OB - PN: Obj Data Labs 08/25/23 03:45 08/24/23 06:43 Labs: Laboratory Results - last 24 hr 08/24/23 08/25/23 16:46 03:45 Hgb 11.4 L Hct 35.5 L POC Capillary Glucose 87 OB - PN A/P Plan Comments: A: PPD#1, doing well. P: Home to f/u 6 weeks. Exam Psych: Other: AVSS ABD soft, nontender, fundus firm EXT nontender
--- NOTE | 2023-08-25 17:16 | PC.NURSE ---
Patient viewed the discharge video Mother & Baby Care, The First Two Weeks . Patient was given the opportunity and encouraged to ask questions. Patient verbalized understanding of information shared and has been given the mother/baby guide for home reference.
[2023-08-25 19:53] VITALS: BP 141/81; PULSE 100; RESP 18; TEMP 36.3; O2SAT 99
--- NOTE | 2023-08-25 20:44 | PC.NURSE ---
Day shift RN- Joanne removed IV. IV site asymptomatic at this time.
[2023-08-26 07:25] VITALS: BP 127/76; PULSE 76; RESP 16; TEMP 36.7; O2SAT 100
[2023-08-26] MEDS: NIFEdipine 30 MG TAB.ER.24 PO (09:58)
[2023-08-26] MEDS: MULTIVIT/MIN/PREN/FOL AC/IRON TABLET 1 TAB PO (09:58)
--- NOTE | 2023-08-26 11:21 | PC.NURSE ---
[id number] Consulted with mother concerning needs and she shared her ability to independently latch optimally without pain. Mother has chosen to use a nipple shield like she did with her other child, then attempts to latch without the nipple shield. Last night she initiated pump and pumped 3 times last night to see how much milk she could express. The last pumping session she pumped 20mls in 5 minutes. Instructions given on cleaning, care, usage, that there should be no pain, pumping schedule for milk production, collection, and storage of human milk. Reinforced understanding of milk production, transition of milk, signs of adequate intake, transition of stool, prevention/relief of engorgement, plugged ducts, mastitis, responsive watching for feeding cues, the different methods of stimulating infant to breastfeed 1-3 hours after the start of the last feeding, community resources (WIC in ), and when to call a provider using the resource of the feeding sheet along with the mom and baby guide. Mother voiced understanding of the information shared, is confident to continue effectively her at home, when to call for assistance, denies any additional assistance or education at this time. Reported to the Primary RN.
[2023-08-27 10:14] VITALS: BP 130/81; PULSE 96; RESP 16; TEMP 36.6; O2SAT 98
== END 2023-08-26 10:41 | disposition home or self-care (01) | DRG 560 ==
LOC: ANHLDR 18:30 → ANHOB2 20:56
PROVIDERS: Admitting Provider Obstetrics & Gynecology; PCP Nurse Practitioner Adult Health; Visit Provider Obstetrics & Gynecology
DX: O10.92 Unspecified pre-existing hypertension complicating childbirth (principal); Z37.0 Single live birth; Z3A.37 37 weeks gestation of pregnancy; O24.429 Gestational diabetes mellitus in childbirth, unspecified control
CPT/HCPCS: 36415; 80053; 82948; 84550; 85014; 85018; 85025; 86592; 86703; 86850; 86900; 86901; 88307; A9270; G0432; J2590; J2795; J7120

== ENCOUNTER 2024-01-17 10:04 | Outpatient (CLI) | payer OTHER, SELFPAY ==
[2024-01-17 18:30] LABS: Basophils Absolute Auto 0.1 K/mm3 (0.0-0.1); Eosinophils Absolute Auto 0.1 K/mm3 (0-0.3); Eosinophils Percent Auto 1.4 % (0-4.4); Hematocrit 44.3 % (37.0-47.0); Hemoglobin 14.2 g/dL (12.0-15.0); Immature Granulocyte Absolute 0.02 K/mm3 (0.00-0.031); Immature Granulocyte Percent A 0.2 % (0-0.5); Lymphocytes Absolute Auto 2.81 K/mm3 (0.9-3.2); Lymphocytes Percent Auto 31.2 % (18.3-44.2); Mean Corpuscular HGB Conc 32.1 g/dl (32-36); Mean Corpuscular Hemoglobin 28.3 pg (26-34); Mean Corpuscular Volume 88.2 fl (80-100); Monocytes Absolute Auto 0.6 K/mm3 (0.1-0.6); Monocytes Percent Auto 6.7 % (2.6-8.5); Neutrophils Absolute Auto 5.4 K/mm3 (1.3-6.7); Neutrophils Percent Auto 59.5 % (45.5-73.1); Platelet Count Result 282 k/mm3 (150-375); Red Blood Count 5.02 M/mm3 (4.2-5.4); Red Cell Distribution Width 12.8 % (11.5-14.5)
[2024-01-17 18:39] LABS: Alanine Aminotransferase 31 U/L (6-35); Albumin Level 4.9 g/dL (3.5-5.1); Alkaline Phosphatase 89 U/L (38-126); Anion Gap 11 mmol/L (4-12); Aspartate Amino Transferase 54 U/L (14-36); Bilirubin,Total 0.5 mg/dL (0.2-1.3); Blood Urea Nitrogen 22 mg/dL (7-17); Calcium 9.2 mg/dL (8.4-10.2); Carbon Dioxide 25 mmol/L (22-30); Chloride 103 mmol/L (98-107); Cholesterol 185 mg/dL (0-200); Estimated Glomerular Filt Rate > 60; Glucose 93 mg/dL (65-110); HDL Direct 51 mg/dL; Potassium 4.3 mmol/L (3.4-5.0); Sodium 139 mmol/L (137-145); Triglycerides 116 mg/dL (<150)
[2024-01-17 18:51] LABS: LDL Cholesterol Direct 91 mg/dL
[2024-01-17 22:05] LABS: Hemoglobin A1C 5.2 % (<5.7)
[2024-01-17 22:23] LABS: Thyroid Stimulating Hormone Reflex 0.392 uIU/mL (0.465-4.68)
[2024-01-17 23:01] LABS: Free T4 Free Thyroxine Reflex 0.76 ng/dL (0.78-2.19)
== END 2024-01-17 10:05 | disposition home or self-care (01) ==
LOC: ANHBWCLAB 10:06
PROVIDERS: PCP Nurse Practitioner Adult Health; Visit Provider Nurse Practitioner Adult Health
DX: I10 Essential (primary) hypertension (principal); Z86.32 Personal history of gestational diabetes
CPT/HCPCS: 36415; 80053; 80061; 83036; 84439; 84443; 85025

== ENCOUNTER 2024-01-25 13:53 | Outpatient (CLI) | payer OTHER, SELFPAY ==
--- NOTE | ~2024-01-25 | US_ITS ---
EXAMINATION: US thyroid DATE: 01/25/2024 14:29 INDICATION: Other specified abnormal findings of blood chemistry. TECHNIQUE: Multiple ultrasound images of the thyroid were obtained. COMPARISON: None. FINDINGS: The right thyroid lobe measures 5.6 x 1.4 x 1.7 cm. The left thyroid lobe measures 5.0 x 1.4 x 1.8 c m. In the left thyroid lobe, there is a 13 mm solid, hypoechoic, wider than tall nodule with smooth margin without echogenic foci. IMPRESSION: 1. Left thyroid nodule. Thyroid ultrasound is recommended in one year. Reviewed, dictated and finalized at location A.
== END 2024-01-25 13:54 | disposition home or self-care (01) ==
LOC: ANHIMG 13:55
PROVIDERS: PCP Nurse Practitioner Adult Health; Visit Provider Nurse Practitioner Adult Health
DX: R79.89 Other specified abnormal findings of blood chemistry (principal); E04.1 Nontoxic single thyroid nodule
CPT/HCPCS: 76536

== ENCOUNTER 2024-01-31 14:29 | Outpatient (CLI) | payer OTHER, SELFPAY ==
[2024-02-03 10:03] LABS: Thyroid Peroxidase Antibodies 5 IU/mL (<9)
== END 2024-01-31 14:30 | disposition home or self-care (01) ==
PROVIDERS: PCP Nurse Practitioner Adult Health; Visit Provider Nurse Practitioner Adult Health
DX: R79.89 Other specified abnormal findings of blood chemistry (principal)
CPT/HCPCS: 36415; 86376

== ENCOUNTER 2024-03-29 09:48 | Outpatient (CLI) | payer OTHER, SELFPAY ==
[2024-03-29 18:34] LABS: Hematocrit 44.3 % (37.0-47.0); Hemoglobin 14.4 g/dL (12.0-15.0); Mean Corpuscular HGB Conc 32.5 g/dl (32-36); Mean Corpuscular Hemoglobin 28.2 pg (26-34); Mean Corpuscular Volume 86.9 fl (80-100); Mean Platelet Volume 11.1 fl (7.4-10.4); Platelet Count Result 250 k/mm3 (150-375); Red Cell Distribution Width 13.1 % (11.5-14.5); White Blood Count 5.6 K/mm3 (4.5-10.0)
[2024-03-29 18:45] LABS: Hemoglobin A1C 5.6 % (<5.7)
[2024-03-29 19:04] LABS: Alanine Aminotransferase 29 U/L (6-35); Albumin Level 4.6 g/dL (3.5-5.1); Alkaline Phosphatase 95 U/L (38-126); Anion Gap 10 mmol/L (4-12); Aspartate Amino Transferase 58 U/L (14-36); Bilirubin,Total 0.7 mg/dL (0.2-1.3); Blood Urea Nitrogen 19 mg/dL (7-17); Calcium 9.5 mg/dL (8.4-10.2); Carbon Dioxide 26 mmol/L (22-30); Chloride 104 mmol/L (98-107); Estimated Glomerular Filt Rate > 60; Glucose 98 mg/dL (65-110); Potassium 4.2 mmol/L (3.4-5.0); Sodium 140 mmol/L (137-145)
[2024-03-29 19:10] LABS: Free T4 Free Thyroxine 0.74 ng/dL (0.78-2.19)
[2024-03-29 19:29] LABS: Thyroid Stimulating Hormone 0.334 uIU/mL (0.465-4.680)
[2024-03-29 22:23] LABS: Folic Acid 16.7 ng/mL (2.76->20)
== END 2024-03-29 09:49 | disposition home or self-care (01) ==
LOC: ANHBWCLAB 09:49
PROVIDERS: PCP Nurse Practitioner Adult Health; Visit Provider Nurse Practitioner Adult Health
DX: Z13.29 Encounter for screening for other suspected endocrine disorder (principal); Z13.89 Encounter for screening for other disorder; R73.9 Hyperglycemia, unspecified
CPT/HCPCS: 36415; 80053; 82607; 82746; 83036; 84439; 84443; 84480; 85027

== ENCOUNTER 2024-12-06 13:17 | Outpatient (CLI) | payer MEDICAID, SELFPAY ==
--- OUTSIDE RECORDS SUMMARY | 2024-12-06 13:28 | XMS_ITS | Clinical Summary ---
Author Organization [facility] Address [address] [place] [address] Phone Care Team Providers Care Mice Raiser Name Role Phone Jennifer Persaud Albino JOHNSON Primary Care Provider [phone] Allergies Active Allergy Reactions Criticality Noted Date Comments Clindamycin Unknown 11/18/2024 Medications HYDROcodone-jamir taminophen (NORCO) 5-325 MG TabletIndicatio ns:Low back pain Take 1 Tablet by mouth every 8 hours as needed for Moderate or more severe pain. 12 Tablet 5 Active predniSONE (DELTASONE) 20 MG Tablet Take 1 Tablet by mouth 2 times daily for 5 days. 10 Tablet 5 11/24/19 25 Encounters Date Type Department Care Team Description 11/18/2024 12:46 PM CDT - 11/18/2024 2:39 PM CDT Emergency [facility] Emergency [address] [place] [address] Messi Copeland PAC Low back pain Discharge Disposition: Discharged to home or Selfcare 11/18/2024 Travel from Last 3 Months Social History Tobacco Use Types Packs/Day Years Used Date Smoking Tobacco: Never Assessed Comments No Sex and Gender Information Value Date Recorded Sex Assigned at Not on file Legal Sex Female 12:45 PM CDT Gender Identity Not on file Sexual Orientation Not on file Last Filed Vital Signs Vital Sign Reading Time Taken Comments Blood Pressure 130/65 11/18/2024 2:38 PM CDT Pulse 79 11/18/2024 2:38 PM CDT Temperature 37.1 C (98.7 F) 11/18/2024 2:38 PM CDT Respiratory Rate 18 11/18/2024 2:38 PM CDT Oxygen Saturation 100% 11/18/2024 2:38 PM CDT Inhaled Oxygen Concentration - - Weight 113.4 kg (250 lb) 11/18/2024 12:48 PM CDT Height 165.1 cm (5' 5) 11/18/2024 12:48 PM CDT Body Mass Index 41.6 11/18/2024 12:48 PM CDT Plan of Treatment Health Maintenance Due Date Last Done Comments Hepatitis C Virus (HCV) Screening 1997 Hepatitis B Immunization (2 of 3 - 3-dose series) 05/27/2005 04/29/2005 Pap Smear 2018 SARS-COV-2 Immunization ( season) 2023 Human Papillomavirus (HPV) Immunization (1 - 3-dose SCDM series) 2024 Influenza Immunization (#1) 2024 01/12/2011 Respiratory Syncytial Virus (RSV) Immunization (Adult) (1 - 1-dose 75+ series) 2072 Meningococcal Immunization (ACWY) Completed 12/18/2014 TdaP Immunization Completed 07/14/2017, , 04/03/2013, Additional history exists Pneumococcal Immunization Combined Aged Out No longer eligible based on patient's age to complete this topic Rotavirus Immunization Aged Out No lo nger eligible based on patient's age to complete this topic Procedures Procedure Name Priority Date/Time Associated Diagnosis Comments XR LUMBAR SPINE 2 OR 3 VIEWS STAT 11/18/2024 1:33 PM CDT from Last 3 Months Results * XR LUMBAR SPINE 2 OR 3 VIEWS (11/18/2024 1:33 PM CDT) Anatomical Region Laterality Modality Spine, L-spine N/A Digital Radiogra phy 11/18/2024 2:02 PM CDT Impressions 11/18/2024 2:04 PM CDT IMPRESSION: 1. No acute fracture. 2. Minimal disc space narrowing L4-5 and L5-S1. Mild spondylosis. 3. Mild retrolisthesis L2 on L3, L3 on L4 and L4 on L5. 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 COMPARISON: No prior FINDINGS: There are 5 xhr-hic-ixcblxk lumbar vertebral bodies. There is preservation of vertebral body height. No acute fracture. Minimal disc space narrowing L4-5 and L5-S1. Mild retrolisthesis L2 on L3, L3 on L4 and L4 on L5. Sacroiliac joints are intact. Soft tissues are unremarkable with IUD noted. 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 COMPARISON: No prior FINDINGS: There are 5 kef-rro-rowpjyq lumbar vertebral bodies. There is preservation of vertebral body height. No acute fracture. Minimal disc space narrowing L4-5 and L5-S1. Mild retrolisthesis L2 on L3, L3 on L4 and L4 on L5. Sacroiliac joints are intact. Soft tissues are unremarkable with IUD noted. THIS IS AN ELECTRONICALLY VERIFIED FINAL REPORT 11/18/2024 2:02 PM - Electronically signed by Ede NOLASCO: GAURAV Report ID: [id number] Reading Location: [id number] IMPRESSION: 1. No acute fracture. 2. Minimal disc space narrowing L4-5 and L5-S1. Mild spondylosis. 3. Mild retrolisthesis L2 on L3, L3 on L4 and L4 on L5. Messi Copeland PAC IMG DIAGNOSTIC ORDER MAURO Final Result from Last 3 Months Insurance MEDICAID [place] Care Teams Mice Raiser Relationship Specialty Start Date End Date Jennifer Persaud APRN [address] [place] [address] PCP - General Advanced Practice Nurse 11/18/24
--- OUTSIDE RECORDS SUMMARY | 2024-12-06 13:29 | XMS_ITS | Clinical Summary ---
Author Organization [facility] al Address [address] [place] [address] Care Team Providers Care Ripsaw Operator Name Role Phone Carito Mckay NP Primary Care Provider [phone] Allergies Active Allergy Reactions Criticality Noted Date Comments Clindamycin Rash Medium 12/20/2014 Medications spironolactone (ALDACTONE) 50 mg tablet TK 2 TS PO QD IN THE MORNING 3 9 Active prochlorperazin e (COMPAZINE) 10 mg tablet Take 1 tablet (10 mg total) by mouth every 6 (six) hours as needed for nausea or vomiting 10 tablet 9 Active Additional Information Patient not taking.Reported on 08/14/2022 Caprice 0.35 mg tablet Take 1 tablet (0.35 mg total) by mouth daily 3 Active Active Problems Problem Noted Date Diagnosed Date Multiple thyroid nodules 08/14/2022 Assessment & Plan (08/14/2022 3:44 PM CDT): Patient states that a previous provider told her that she had multiple thyroid nodules. She had been receiving ultrasounds every 6 months but has had this done in years. TSH with free T4 and thyroid ultrasound ordered Pre-diabetes 08/14/2022 Assessment & Plan (08/14/2022 3:45 PM CDT): Patient states she has been told she has been prediabetic for years. She did not have gestational diabetes with her 1st 5 years ago but she did have it with her 2nd in 2021. We discussed diet and exercise. Patient verbalized understanding. Ordered hemoglobin A1c, lipid, CMP and CBC. Encounter to establish care with new doctor 08/2022 Assessment & Plan (08/14/2022 3:46 PM CDT): Welcome, I look forward to being your provider. Labs ordered. Informed patient that once we received labs we will call to discuss them and make any necessary changes, and/or add medication. PCOS (polycystic ovarian syndrome) 01/23/2019 Immunizations Immunization Administration Dates Next Due Influenza, Unspecified 08/14/2022(Deferred: Kirsten ent Refused) Surgical History Surgery Date Site/Laterality Comments OTHER SURGICAL HISTORY 04/12/2012 - 04/11/2013 N/A tonsilectomy OTHER SURGICAL HISTORY ear tubes placed Medical History Medical History Date Comments Pre-eclampsia PCOS (polycystic ovarian syndrome) Family History Medical History Relation Name Comments COPD Maternal Grandmother Diabetes Maternal Grandmother Stroke Maternal Grandmother Depression Mother Hypertension Mother Diabetes Paternal Grandfather Hypertension Paternal Grandfather Relation Name Status Comments Maternal Grandmother Mother Paternal Grandfather Social History Tobacco Use Types Packs/Day Years Used Date Smoking Tobacco: Never Tobacco Cessation:Counseling Given: Not Answered AUDIT-C Answer Date Recorded Q1: How often do you have a drink containing alc ohol? 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 Gender Identity Not on file Sexual Orientation Not on file Obstetrics History Last Filed Vital Signs Vital Sign Reading Time Taken Comments Blood Pressure 120/82 08/14/2022 2:59 PM CDT Pulse 88 08/14/2022 2:59 PM CDT Temperature 37 C (98.6 F) 08/14/2022 2:59 PM CDT Respiratory Rate 16 08/14/2022 2:59 PM CDT Oxygen Saturation 98% 08/14/2022 2:59 PM CDT Inhaled Oxygen Concentration - - Weight 101.6 kg (224 lb) 08/14/2022 2:59 PM CDT Height 162.6 cm (5' 4) 08/14/2022 2:59 PM CDT Body Mass Index 38.45 08/14/2022 2:59 PM CDT Plan of Treatment Health Maintenance Due Date Last Done Comments Cervical Cancer Screening 1997 Hepatitis C Screening 1997 Varicella Vaccines (1 of 2 - 13+ 2-dose series) 2010 Depression Screening 08/15/2023 08/14/2022 Regular Well Visit/Exam 18-64 08/15/2023 08/14/2022 HPV Vaccines (1 - 3-dose SCDM series) 2024 Influenza Vaccine (#1) 2024 1, 03/05/2009, 02/06/2008 DTaP/Tdap/Td Vaccine (8 - Td or Tdap) 07/15/2027 07/14/2017, 06/11/2017, 04/03/2013, Additional history exists Hepatitis B Screening Completed 04/29/2005 Pneumococcal vaccine <65 Aged Out No longer eligible based on patient's age to complete this topic Insurance [facility] Care Teams Ripsaw Operator Relationship Specialty Start Date End Date Carito Mckay NP PCP - General Family Medicine 08/14/22
[2024-12-06 19:35] LABS: Free T4 Free Thyroxine 0.73 ng/dL (0.78-2.19)
== END 2024-12-06 13:18 | disposition home or self-care (01) ==
PROVIDERS: PCP Nurse Practitioner Adult Health; Visit Provider Nurse Practitioner Adult Health
DX: E03.9 Hypothyroidism, unspecified (principal); E66.9 Obesity, unspecified
CPT/HCPCS: 36415; 82533; 84439

== ENCOUNTER 2024-12-08 14:03 | Emergency (ER) | payer MEDICAID, SELFPAY ==
--- OUTSIDE RECORDS SUMMARY | 2024-12-08 14:06 | XMS_ITS | Clinical Summary ---
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 COMPARISON: No prior FINDINGS: There are 5 wzq-bgt-covfsyy lumbar vertebral bodies. There is preservation of vertebral body height. No acute fracture. Minimal disc space narrowing L4-5 and L5-S1. Mild retrolisthesis L2 on L3, L3 on L4 and L4 on L5. Sacroiliac joints are intact. Soft tissues are unremarkable with IUD noted. 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 COMPARISON: No prior FINDINGS: There are 5 wvv-ttr-twvmywa lumbar vertebral bodies. There is preservation of vertebral body height. No acute fracture. Minimal disc space narrowing L4-5 and L5-S1. Mild retrolisthesis L2 on L3, L3 on L4 and L4 on L5. Sacroiliac joints are intact. Soft tissues are unremarkable with IUD noted. THIS IS AN ELECTRONICALLY VERIFIED FINAL REPORT 11/18/2024 2:02 PM - Electronically signed by Ede NOLASCO: GAURAV Report ID: [id number] Reading Location: [id number] IMPRESSION: 1. No acute fracture. 2. Minimal disc space narrowing L4-5 and L5-S1. Mild spondylosis. 3. Mild retrolisthesis L2 on L3, L3 on L4 and L4 on L5. Messi Copeland PAC IMG DIAGNOSTIC ORDER MAURO Final Result from Last 3 Months Insurance MEDICAID [place] Care Teams Journalism Professor Relationship Specialty Start Date End Date Jennifer Persaud APRN [address] [place] [address] PCP - General Advanced Practice Nurse 11/18/24
--- OUTSIDE RECORDS SUMMARY | 2024-12-08 14:06 | XMS_ITS | Clinical Summary ---
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
[2024-12-08 14:42] VITALS: BP 146/100; PULSE 88; RESP 20; TEMP 37; O2SAT 99
--- NOTE | 2024-12-08 16:36 | ED.LOWEXIN ---
HPI - Extremity Injury (Lower) General Chief Complaint: Extremity Injury, Lower Stated Complaint: ripped left big toenail off Time Seen by Provider: 12/08/24 16:07 Source: patient Mode of arrival: ambulatory Limitations: no limitations History of Present Illness HPI Narrative: Patient is a 29-year-old female who presents the ED with report of left 1st toenail avulsion. Patient reports she was attempting to step over a baby gate in her toenail became caught on the gait. This caused partial nail avulsion of L 1st toe. C/o pain to toe. Denies any other injuries. Tetanus UTD. Related Data Allergies Allergy/AdvReac Type Severity Reaction Status Date / Time clindamycin Allergy Intermediate Hives Verified 11/22/24 08:30 Review of Systems Review of Systems: All systems reviewed & are unremarkable except as noted in HPI. All systems reviewed & are unremarkable except as noted in HPI and below PMFSH Past Medical History Medical History Anxiety and depression Scoliosis GDM (gestational diabetes mellitus), class A1 Rhinitis Chronic otitis media Hypertension Multiple thyroid nodules Bronchitis Asthma Tonsillitis Preeclampsia Surgical History Surgical History History of tonsillectomy History of tympanostomy Family History Family History Grandparent Diabetes mellitus Grandparent Diabetes mellitus Sibling Asthma Family history of attention deficit hyperactivity disorder (ADHD) Sibling Asthma Mother Depression Social History Social History Smoking status: Never smoker Tobacco type: cigarettes Second hand tobacco smoke exposure: Yes Alcohol intake: never Substance use: never Do You Feel Safe in your Home?: Yes Lack of Transportation: No Lack of Food: Never True Current Housing: I Have Housing Concerned About Future Housing: No Difficulty Paying Gas/Electric Bills: No Difficulty Paying for Meds: No Currently Unemployed: No Education: High School Diploma/GED Difficulty w/ Childcare or Family Care: No Living arrangements: with family Occupation/Education: occupation Gender identity (if verbalized by the patient): Female Sexual Orientation (if Verbalized by the Patient): Straight or Heterosexual Spiritual care concerns: No Exam Narrative: GENERAL: Well appearing, morbidly obese with BMI of 41.5, non-toxic, in no acute distress. HEAD: Normocephalic, atraumatic. RESPIRATORY: Airway patent, respirations nonlabored. Clear to auscultation bilaterally, no rales, rhonchi, wheezing. CARDIOVASCULAR: Regular rate and rhythm without murmurs, rubs, or gallops. Pedal pulses intact. MUSCULOSKELETAL: Moves all extremities. No gross deformities. L first toenail avulsion, nail plate still attached at cuticle/base but angled at 90 degrees from cuticle. TTP with any manipulation of toenail plate. Nail bed with some dried bleeding. SKIN: Warm, dry, normal color. NEURO: A&O X3. Speech clear. Steady gait. No ataxic movements. PSYCHIATRIC: Appropriate mood and affect. Normal interaction. Course Vital Signs Vital signs: Vital Signs Temperature 98.6 F 12/08/24 14:42 Pulse Rate 88 12/08/24 14:42 Respiratory Rate 20 12/08/24 14:42 Blood Pressure 146/100 H 12/08/24 14:42 Pulse Oximetry 99 12/08/24 14:42 Oxygen Delivery Room Air 12/08/24 14:42 Temperature 97.8 F 12/08/24 17:01 Pulse Rate 80 12/08/24 17:01 Respiratory Rate 16 12/08/24 17:01 Blood Pressure 130/76 12/08/24 17:01 Pulse Oximetry 100 12/08/24 17:01 Oxygen Delivery Room Air 12/08/24 17:01 Procedures Nerve Block Nerve Block 1: Nerve block date: 12/08/24 Nerve block time: 16:30 Time out performed: Yes Local Anesthetic: lidocaine 1% Amount of anesthesia used (mL): 5 Side: left Nerve Blocks: digital (1st toe) Procedure Successful: Yes Patient Tolerated Procedure: well and no complications Complications: none MDM - Extremity Injury (Lower) MDM Narrative Medical decision making narrative: Digital nerve block was performed to left 1st toe. Nail was removed completely by myself. I was able to place a piece of metal suture packaging under cuticle edge to keep open. This was derma-bonded in place. Patient otherwise safe for discharge home at this time. Discussed wound care, return precautions. Will send short course of pain medication to pharmacy. Given return precautions. Discharged in stable condition Medical Records Attestation: I reviewed the patient's medical records. Discharge Plan Discharge Clinical Impression: Traumatic avulsion of nail plate of toe Qualifiers: Encounter type: initial encounter Qualified Code(s): S91.209A - Unspecified open wound of unspecified toe(s) with damage to nail, initial encounter Patient Disposition: Home Condition: Stable Instructions: Antibiotic Form, Nail Avulsion (ED) Additional Instructions: Take Tylenol and ibuprofen as needed for pain. Carson as needed for more severe pain. Do not attempt to adjust metal nail plate. Allow to fall off on its own over the next few days. Follow-up with your primary care doctor for further evaluation. Return for new or worsening concerns. Patient Language: Yemeni Prescriptions: New hydrocodone-acetaminophen 5-325 mg tablet 1 tablet PO Q6H PRN (Reason: pain) Qty: 5 0RF No Action amlodipine 5 mg tablet 5 mg PO DAILY Qty: 30 1RF metformin [Glucophage XR] 500 mg tablet extended release 24 hr 500 mg PO DAILY Qty: 90 3RF Follow-up/Referrals: Jennifer Persaud APRN [Primary Care Provider, [facility]] Time of Disposition: 16:56
[2024-12-08 17:01] VITALS: BP 130/76; PULSE 80; RESP 16; TEMP 36.6; O2SAT 100
== END 2024-12-08 17:11 | disposition home or self-care (01) ==
PROVIDERS: Emergency Provider Physician Assistant; PCP Nurse Practitioner Adult Health
DX: S91.202A Unspecified open wound of left great toe with damage to nail, initial encounter (principal); I10 Essential (primary) hypertension; J45.909 Unspecified asthma, uncomplicated; E66.01 Morbid (severe) obesity due to excess calories; Z68.41 Body mass index [BMI] 40.0-44.9, adult; Z77.22 Contact with and (suspected) exposure to environmental tobacco smoke (acute) (chronic); W22.8XXA Striking against or struck by other objects, initial encounter
CPT/HCPCS: 11730; 99283

== ENCOUNTER 2025-02-26 15:20 | Outpatient (CLI) | payer MEDICAID, SELFPAY ==
[2025-02-26 19:17] LABS: Hemoglobin A1C 5.6 % (<5.7)
[2025-02-26 19:30] LABS: Alanine Aminotransferase 30 U/L (6-35); Albumin Level 4.6 g/dL (3.5-5.1); Alkaline Phosphatase 80 U/L (38-126); Anion Gap 9 mmol/L (4-12); Aspartate Amino Transferase 44 U/L (14-36); Bilirubin,Total 0.5 mg/dL (0.2-1.3); Blood Urea Nitrogen 13 mg/dL (7-17); Calcium 9.4 mg/dL (8.4-10.2); Carbon Dioxide 27 mmol/L (22-30); Chloride 103 mmol/L (98-107); Cholesterol 170 mg/dL (0-200); Estimated Glomerular Filt Rate > 60; Glucose 106 mg/dL (65-110); HDL Direct 41 mg/dL; Potassium 4.4 mmol/L (3.4-5.0); Sodium 139 mmol/L (137-145); Total Protein 7.5 g/dL (6.3-8.2); Triglycerides 129 mg/dL (<150)
[2025-02-26 19:46] LABS: Free T4 Free Thyroxine 0.92 ng/dL (0.78-2.19)
[2025-02-26 20:05] LABS: Thyroid Stimulating Hormone 0.504 uIU/mL (0.465-4.680)
== END 2025-02-26 15:21 | disposition home or self-care (01) ==
PROVIDERS: PCP Nurse Practitioner Adult Health; Visit Provider Nurse Practitioner Adult Health
DX: E03.9 Hypothyroidism, unspecified (principal); I10 Essential (primary) hypertension; Z86.32 Personal history of gestational diabetes
CPT/HCPCS: 36415; 80053; 80061; 83036; 84439; 84443